=== PATIENT | male | born 1950 | race Caucasian/White ===

== ENCOUNTER → 2018-01-09 09:40 | Outpatient (CLI) | payer MEDICARE, SELFPAY ==
[2018-01-09 12:08] LABS: ALB/GLOB Ratio 1.3 RATIO (0.9-2.4); AST(SGOT) 17 U/L (15-37); Alanine Aminotransfer ALT/SGPT 21 U/L (16-61); Alkaline Phosphatase 78 U/L (45-117); Anion Gap 8 (5-15); BUN 25 mg/dL (7-18); BUN/Creat Ratio 12.2 RATIO (10-20); Calcium,Total 8.6 mg/dL (8.5-10.1); Chloride 108 mmol/L (98-107); Cholesterol 155 mg/dL (200); Creatinine, Serum 2.05 mg/dL (0.70-1.30); EST Glomerular Filtration Rate 34 mL/min (>60); Est Glom Filt Rate - Afr Amer 42 mL/min (>60); Glucose 140 mg/dL (74-106); High Density Lipoprotein 41 mg/dL; Potassium 4.4 mmol/L (3.5-5.1); Sodium Level 140 mmol/L (136-145); Triglycerides 130 mg/dL; Very Low Density Lipoprotein 26 mg/dL (5-40)
[2018-01-09 12:12] LABS: Hemoglobin A1c 8.3 % (4.2-6.3)
== END ==
PROVIDERS: Family Provider Family Medicine; PCP Family Medicine; Visit Provider Family Medicine
DX: E11.22 Type 2 diabetes mellitus with diabetic chronic kidney disease (principal); N18.3 Chronic kidney disease, stage 3 (moderate); E78.5 Hyperlipidemia, unspecified
CPT/HCPCS: 36415; 80053; 80061; 83036

== ENCOUNTER → 2018-02-17 08:00 | Outpatient (CLI) | payer MEDICARE, SELFPAY ==
--- NOTE | 2018-02-17 08:00 | DT_ITS ---
This patient was seen during an EMR downtime February 10, 2018 - February 17, 2018. This patient may have a combination of paper and electronic documentation or all paper documentation. All documentation is viewable within the e-chart portion of [facility] for each patient visit.
[2018-02-17 10:41] LABS: Albumin, Serum 3.8 g/dL (3.2-5.0); BUN 15 mg/dL (7-18); BUN/Creat Ratio 9.9 RATIO (10-20); Calcium,Total 8.3 mg/dL (8.5-10.1); Chloride 111 mmol/L (98-107); Creatinine, Serum 1.52 mg/dL (0.70-1.30); EST Glomerular Filtration Rate 49 mL/min (>60); Est Glom Filt Rate - Afr Amer 59 mL/min (>60); Glucose 104 mg/dL (74-106); Phosphorus 2.9 mg/dL (2.5-4.9); Potassium 4.2 mmol/L (3.5-5.1); Sodium Level 143 mmol/L (136-145)
== END ==
PROVIDERS: Family Provider Family Medicine; PCP Family Medicine; Visit Provider Internal Medicine Nephrology
DX: E11.9 Type 2 diabetes mellitus without complications (principal); N18.3 Chronic kidney disease, stage 3 (moderate)
CPT/HCPCS: 36415; 80069

== ENCOUNTER → 2018-02-20 09:37 | Outpatient (CLI) | payer MEDICARE, SELFPAY ==
[2018-02-20 13:00] LABS: Protein, Urine (Random) 23.7 mg/dL (<11.9); Protein:Creat Ratio 166 mg/g CRE (0-200)
== END ==
PROVIDERS: Family Provider Family Medicine; PCP Family Medicine; Visit Provider Internal Medicine Nephrology
DX: E11.9 Type 2 diabetes mellitus without complications (principal)
CPT/HCPCS: 82570; 84156

== ENCOUNTER → 2018-03-26 15:56 | Outpatient (CLI) | payer MEDICARE, SELFPAY ==
[2018-03-26 18:54] LABS: Hemoglobin A1c 5.9 % (4.2-6.3)
== END ==
PROVIDERS: Family Provider Family Medicine; PCP Family Medicine; Visit Provider Family Medicine
DX: E11.9 Type 2 diabetes mellitus without complications (principal)
CPT/HCPCS: 36415; 83036

== ENCOUNTER → 2018-06-25 09:49 | Outpatient (CLI) | payer MEDICARE, SELFPAY ==
[2018-06-25 10:55] LABS: Hemoglobin A1c 5.5 % (4.2-6.3)
== END ==
PROVIDERS: Family Provider Family Medicine; PCP Family Medicine; Referring Provider Family Medicine; Visit Provider Family Medicine
DX: E11.9 Type 2 diabetes mellitus without complications (principal)
CPT/HCPCS: 36415; 83036

== ENCOUNTER → 2018-08-29 10:37 | Outpatient (CLI) | payer MEDICARE, SELFPAY ==
[2018-06-25 08:52] VITALS: BMI 30.4
[2018-08-29 11:46] LABS: Albumin, Serum 3.9 g/dL (3.2-5.0); BUN 16 mg/dL (7-18); Calcium,Total 8.6 mg/dL (8.5-10.1); Chloride 107 mmol/L (98-107); EST Glomerular Filtration Rate 46 mL/min (>60); Est Glom Filt Rate - Afr Amer 55 mL/min (>60); Glucose 175 mg/dL (74-106); Phosphorus 2.7 mg/dL (2.5-4.9); Potassium 4.5 mmol/L (3.5-5.1); Sodium Level 138 mmol/L (136-145)
[2018-08-29 11:59] LABS: PTHIN 80.3 pg/mL (18.4-80.1)
== END ==
PROVIDERS: Family Provider Family Medicine; PCP Family Medicine; Referring Provider Internal Medicine Nephrology; Visit Provider Internal Medicine Nephrology
DX: N18.3 Chronic kidney disease, stage 3 (moderate) (principal)
CPT/HCPCS: 36415; 80069; 83970

== ENCOUNTER → 2018-12-31 09:49 | Outpatient (CLI) | payer MEDICARE, SELFPAY ==
[2018-12-31 09:25] VITALS: BMI 30.5
[2018-12-31 12:27] LABS: ALB/GLOB Ratio 1.4 RATIO (0.9-2.4); AST(SGOT) 23 U/L (15-37); Alanine Aminotransfer ALT/SGPT 21 U/L (16-61); Alkaline Phosphatase 81 U/L (45-117); Anion Gap 7 (5-15); BUN 25 mg/dL (7-18); BUN/Creat Ratio 12.6 RATIO (10-20); Chloride 109 mmol/L (98-107); Cholesterol 155 mg/dL (200); Creatinine, Serum 1.98 mg/dL (0.70-1.30); EST Glomerular Filtration Rate 36 mL/min (>60); Est Glom Filt Rate - Afr Amer 43 mL/min (>60); Globulin 2.8 g/dL (2.2-4.2); Glucose 146 mg/dL (74-106); High Density Lipoprotein 45 mg/dL; Potassium 4.5 mmol/L (3.5-5.1); Protein, Total 6.8 g/dL (6.4-8.2); Sodium Level 142 mmol/L (136-145); Triglycerides 108 mg/dL; Very Low Density Lipoprotein 22 mg/dL (5-40)
== END ==
PROVIDERS: Family Provider Family Medicine; PCP Family Medicine; Visit Provider Family Medicine
DX: N18.3 Chronic kidney disease, stage 3 (moderate) (principal); E78.5 Hyperlipidemia, unspecified
CPT/HCPCS: 36415; 80053; 80061

== ENCOUNTER → 2019-01-15 | Outpatient (CLI) | payer MEDICARE, SELFPAY ==
[2019-01-15 10:28] VITALS: BMI 30.5
--- NOTE | 2019-01-15 11:08 | VDLE_ITS ---
Reason For Study: swelling RIGHT LEFT CFV is compressible, spontaneous, phasic, CFV is partially compressible with decreased competent and demonstrates normal flow. augmentation. FV, Pop V, T/P Trunk, PTV, Peroneal V, Procedure Gastroc V, and Soleus V are dilated and Exam performed in department. noncompressible. The exam was diagnostic. GSV is dilated and noncompressibler at the A preliminary report was called and/or faxed knee. to Jose A Sarkar BOX FINISHER. Pt released per Jose A Sarkar. Office to call pt with instructions. Interpretation Summary Acute deep vein thrombosis is noted in the left common femoral vein. Acute deep vein thrombosis is noted in the left femoral vein. Acute deep vein thrombosis is noted in the left popliteal vein. Acute deep vein thrombosis is noted in the left tibio-peroneal trunk. Acute deep vein thrombosis is noted in the left posterior tibial vein. Acute deep vein thrombosis is noted in the left peroneal vein. Acute deep vein thrombosis is noted in the left gastrocnemius vein. Acute deep vein thrombosis is noted in the left soleus vein. Acute superficial thrombophlebitis is noted in the left great saphenous vein at the level of the knee. Ordering Physician: Jose A Sarkar Performed By: Frankie Diaz RVT
== END | disposition home or self-care (01) ==
LOC: CVS 11:07
PROVIDERS: Family Provider Family Medicine; PCP Family Medicine; Referring Provider Nurse Practitioner Family; Visit Provider Nurse Practitioner Family
DX: M79.662 Pain in left lower leg (principal); M79.89 Other specified soft tissue disorders
CPT/HCPCS: 93971

== ENCOUNTER → 2019-03-06 | Outpatient (CLI) | payer MEDICARE, SELFPAY ==
[2019-02-11 09:50] VITALS: BMI 30.5
[2019-03-06 10:41] LABS: Albumin, Serum 3.8 g/dL (3.2-5.0); BUN 22 mg/dL (7-18); BUN/Creat Ratio 11.8 RATIO (10-20); Calcium,Total 8.8 mg/dL (8.5-10.1); Chloride 111 mmol/L (98-107); Creatinine, Serum 1.86 mg/dL (0.70-1.30); EST Glomerular Filtration Rate 38 mL/min (>60); Est Glom Filt Rate - Afr Amer 47 mL/min (>60); Glucose 153 mg/dL (74-106); Phosphorus 2.8 mg/dL (2.5-4.9); Potassium 4.2 mmol/L (3.5-5.1); Sodium Level 138 mmol/L (136-145)
[2019-03-06 10:46] LABS: PTHIN 81.7 pg/mL (18.4-80.1)
== END | disposition home or self-care (01) ==
LOC: LAB.FUTURE 09:53
PROVIDERS: Family Provider Family Medicine; PCP Family Medicine; Referring Provider Internal Medicine Nephrology; Visit Provider Internal Medicine Nephrology
DX: N18.3 Chronic kidney disease, stage 3 (moderate) (principal)
CPT/HCPCS: 36415; 80069; 83970

== ENCOUNTER → 2019-08-03 08:27 | Outpatient (CLI) | payer MEDICARE, SELFPAY ==
[2019-07-08 09:34] VITALS: BMI 30.5
[2019-08-03 10:04] LABS: BUN 20 mg/dL (7-18); BUN/Creat Ratio 12.5 RATIO (10-20); Calcium,Total 8.8 mg/dL (8.5-10.1); Chloride 106 mmol/L (98-107); EST Glomerular Filtration Rate 46 mL/min (>60); Est Glom Filt Rate - Afr Amer 55 mL/min (>60); Glucose 160 mg/dL (74-106); Phosphorus 2.6 mg/dL (2.5-4.9); Potassium 3.9 mmol/L (3.5-5.1); Sodium Level 139 mmol/L (136-145)
== END ==
PROVIDERS: Family Provider Family Medicine; PCP Family Medicine; Referring Provider Internal Medicine Nephrology; Visit Provider Internal Medicine Nephrology
DX: N18.3 Chronic kidney disease, stage 3 (moderate) (principal)
CPT/HCPCS: 36415; 80069

== ENCOUNTER → 2020-01-05 | Outpatient (CLI) | payer MEDICARE, SELFPAY ==
[2019-07-08 09:34] VITALS: BMI 30.5
[2020-01-05 09:31] VITALS: BMI 30.5
[2020-01-05 14:22] LABS: ALB/GLOB Ratio 1.4 RATIO (0.9-2.4); AST(SGOT) 14 U/L (15-37); Alanine Aminotransfer ALT/SGPT 18 U/L (16-61); Alkaline Phosphatase 77 U/L (45-117); Anion Gap 5 (5-15); BUN 16 mg/dL (7-18); BUN/Creat Ratio 9.7 RATIO (10-20); Calcium,Total 8.9 mg/dL (8.5-10.1); Chloride 106 mmol/L (98-107); Creatinine, Serum 1.65 mg/dL (0.70-1.30); EST Glomerular Filtration Rate 44 mL/min (>60); Est Glom Filt Rate - Afr Amer 53 mL/min (>60); Globulin 2.9 g/dL (2.2-4.2); Glucose 118 mg/dL (74-106); Potassium 3.9 mmol/L (3.5-5.1); Protein, Total 6.9 g/dL (6.4-8.2); Sodium Level 138 mmol/L (136-145)
== END | disposition home or self-care (01) ==
PROVIDERS: PCP Family Medicine; Referring Provider Family Medicine; Visit Provider Family Medicine
DX: J44.9 Chronic obstructive pulmonary disease, unspecified (principal); E11.22 Type 2 diabetes mellitus with diabetic chronic kidney disease; N18.3 Chronic kidney disease, stage 3 (moderate)
CPT/HCPCS: 36415; 80053; 87635; G2023; U0004

== ENCOUNTER → 2020-03-09 08:30 | Outpatient (CLI) | payer MEDICARE, SELFPAY ==
[2020-01-05 09:31] VITALS: BMI 30.5
[2020-03-09 09:41] LABS: PTHIN 100.6 pg/mL (18.4-80.1)
[2020-03-09 09:43] LABS: Protein:Creat Ratio 131 mg/g CRE (0-200)
[2020-03-09 09:46] LABS: Albumin, Serum 3.6 g/dL (3.2-5.0); BUN 18 mg/dL (7-18); BUN/Creat Ratio 10.5 RATIO (10-20); Calcium,Total 8.3 mg/dL (8.5-10.1); Chloride 110 mmol/L (98-107); Creatinine, Serum 1.71 mg/dL (0.70-1.30); EST Glomerular Filtration Rate 42 mL/min (>60); Est Glom Filt Rate - Afr Amer 51 mL/min (>60); Glucose 138 mg/dL (74-106); Phosphorus 3.4 mg/dL (2.5-4.9); Potassium 3.9 mmol/L (3.5-5.1); Sodium Level 141 mmol/L (136-145)
== END ==
PROVIDERS: PCP Family Medicine; Referring Provider Internal Medicine Nephrology; Visit Provider Internal Medicine Nephrology
DX: E11.22 Type 2 diabetes mellitus with diabetic chronic kidney disease (principal); N18.3 Chronic kidney disease, stage 3 (moderate)
CPT/HCPCS: 36415; 80069; 82570; 83970; 84156

== ENCOUNTER → 2020-04-12 09:35 | Outpatient (CLI) | payer MEDICARE, SELFPAY ==
[2020-04-12 09:00] VITALS: BMI 27.7
[2020-04-13 06:45] LABS: SARS-COV-2 TOTAL ABS Nonreactive (Nonreactive)
== END ==
PROVIDERS: PCP Family Medicine; Referring Provider Family Medicine; Visit Provider Family Medicine
DX: Z03.818 Encounter for observation for suspected exposure to other biological agents ruled out (principal)
CPT/HCPCS: 36415; 86769

== ENCOUNTER → 2020-08-24 07:51 | Outpatient (CLI) | payer MEDICARE, SELFPAY ==
[2020-01-05 09:31] VITALS: BMI 30.5
[2020-07-13 09:10] VITALS: BMI 28.5
[2020-08-24 08:48] LABS: Hematocrit 41.7 % (40-54); Hemoglobin 14.7 g/dL (13.0-16.5); Mean Corp Hgb Conc 35.3 g/dL (32-36); Mean Corpuscular Hgb 32.2 pg (27.0-32.0); Mean Corpuscular Volume 91.4 fL (80-94); Mean Platelet Vol. 10.3 fl (6.2-12.0); Platelet Count 175 K/mm3 (150-450); RBC Distribution Width CV 11.3 % (11.6-14.6); RBC Distribution Width SD 38.1 fl (35.1-43.9); Red Blood Count 4.56 M/mm3 (4.6-6.2); White Blood Count 5.9 K/mm3 (4.4-11.0)
[2020-08-24 09:19] LABS: Albumin, Serum 4.2 g/dL (3.2-5.0); BUN 13 mg/dL (7-18); BUN/Creat Ratio 8.2 RATIO (10-20); Calcium,Total 8.9 mg/dL (8.5-10.1); Chloride 108 mmol/L (98-107); Creatinine, Serum 1.58 mg/dL (0.70-1.30); EST Glomerular Filtration Rate 46 mL/min (>60); Est Glom Filt Rate - Afr Amer 56 mL/min (>60); Glucose 124 mg/dL (74-106); Phosphorus 2.4 mg/dL (2.5-4.9); Potassium 3.3 mmol/L (3.5-5.1); Sodium Level 141 mmol/L (136-145)
== END ==
PROVIDERS: PCP Family Medicine; Referring Provider Internal Medicine Nephrology; Visit Provider Internal Medicine Nephrology
DX: N18.30 Chronic kidney disease, stage 3 unspecified (principal)
CPT/HCPCS: 36415; 80069; 85027

== ENCOUNTER → 2020-11-30 | Outpatient (CLI) | payer MEDICARE, SELFPAY ==
[2020-11-30 13:56] LABS: Bacteria 0 SEEN /hpf (None Seen); Mucous, Urine 0 SEEN /hpf (<or=2+); Red Blood Cells-Urine 0 SEEN /hpf (0-5); Squamous Epithelial Cells - UA 0 SEEN /hpf (0-5); White Blood Cells 0 SEEN /hpf (0-5)
[2020-11-30 15:17] LABS: Color, Urine Yellow (Yellow); Glucose, Dipstick Normal (Normal); Ketone-Dipstick Negative (Negative); Leukocyte Esterase-Dipstick Negative /ul (Negative); Nitrite-Dipstick Negative (Negative); Occult Blood-Urine 10 /ul (Negative); Protein-Dipstick 15 mg/dl (Negative); Specific Gravity, Urine 1.015 (1.002-1.030); Urine Bilirubin Dipstick Negative (Negative); Urine Clarity Clear (Clear); Urine Urobilinogen 1 mg/dl (Normal)
== END | disposition home or self-care (01) ==
LOC: LABSPEC 13:56
PROVIDERS: PCP Family Medicine; Referring Provider Nurse Practitioner Family; Visit Provider Nurse Practitioner Family
DX: R10.9 Unspecified abdominal pain (principal); K21.9 Gastro-esophageal reflux disease without esophagitis
CPT/HCPCS: 81001; 87086; 87088

== ENCOUNTER → 2020-12-12 15:34 | Outpatient (CLI) | payer MEDICARE, SELFPAY ==
--- NOTE | 2020-12-12 15:41 | CT_ITS ---
STUDY: CT ABDOMEN AND PELVIS WITHOUT CONTRAST REASON FOR EXAM: Male, 70 years old. abdominal pain RADIATION DOSAGE (If Supplied By Facility): CTDIvol = ( 13.08 ) mGy, DLP = ( 669.71 ) mGycm TECHNIQUE: Transaxial images were obtained from the dome of the diaphragm to the symphysis pubis without oral contrast, and without intravenous contrast. Sagittal and coronal images were reconstructed. Individualized dose optimization techniques were used for this CT. COMPARISON: None. FINDINGS: The visualized lung bases are unremarkable. The visualized portions of the heart are within normal limits. Normal liver. Normal gallbladder and extrahepatic biliary system. Normal spleen. Normal pancreas. Normal bilateral adrenal glands. Nonspecific bilateral perinephric stranding. Multiple right-sided low attenuation structures consistent with simple cysts, largest seen within the mid lower pole, exophytic and measuring 5.3 x 6.6 cm. Otherwise normal right kidney. Multiple low-attenuation structures within the left kidney consistent with simple cysts, largest seen in the left mid upper renal pole, exophytic and measuring 5.0 x 5.0 cm. Otherwise normal left kidney. Normal visualized stomach. Normal small intestine. Normal colon. The appendix is visualized and appears normal. Normal abdominal aorta. Normal inferior vena cava. Normal retroperitoneum. Normal urinary bladder. Mild prosthetic enlargement. Small right-sided fat-containing inguinal hernia. There are diffuse degenerative changes of the visualized lumbar spine. Degenerative disease of bilateral SI joints and hips. CT/Abdomen/Pelvis without Cont IMPRESSION: No acute appendicitis or bowel obstruction. No focal inflammatory process throughout the gastrointestinal tract. Bilateral renal cysts, remainder of abdominal viscera are unremarkable. Electronically Signed: Jodi Messina MD at 23:39 EDT , Service support ,
== END ==
PROVIDERS: PCP Family Medicine; Referring Provider Nurse Practitioner Family; Visit Provider Nurse Practitioner Family
DX: K21.9 Gastro-esophageal reflux disease without esophagitis (principal); R10.9 Unspecified abdominal pain
CPT/HCPCS: 74176

== ENCOUNTER 2020-12-27 08:10 | Day surgery (SDC) | payer MEDICARE, SELFPAY ==
[2020-12-14 09:01] VITALS: BMI 25.8
[2020-12-27] VITALS (7 sets, daily range): BP systolic 116–127; BP diastolic 56–66; PULSE 59–72; RESP 16–18; TEMP 36.3–36.7; O2SAT 99–100; BMI 26.2
--- NOTE | 2020-12-27 07:12 | HP_ITS ---
Intake Vital Signs 12/14/20 Height 5 ft 10 in 12/14/20 Weight: 180 lb 12/14/20 BMI 25.8 12/14/20 BP 165/79 H 12/14/20 Blood Pressure Location Rt brachial 12/14/20 Position Sitting 12/14/20 Respiration 16 12/14/20 Pulse 57 L 12/14/20 Pulse Source Monitor 12/14/20 Temp 97.8 F 12/14/20 Temp Source Temporal 12/14/20 Pulse Oximetry (%) 98 12/14/20 Oxygen Delivery Method room air Intake Visit Reasons: Reflux Chief Complaint: nausea and abdominal pain Md Do Resident Urgent Care Required: No Is patient in pain?: No Allergies aspirin Allergy (Severe, Verified 12/14/20 09:02) Hives Medications losartan 25 mg tablet 25 mg PO QDAY #90 tab 04/12/20 [Rx Confirmed 12/14/20] pravastatin 20 mg tablet 20 mg PO QDAY #90 tab 04/12/20 [Rx Confirmed 12/14/20] sitagliptin 100 mg tablet 100 mg PO QDAY #90 tab 07/13/20 [Rx Confirmed 12/14/20] apixaban 5 mg tablet 5 mg PO BID #180 tab 10/26/20 [Rx Confirmed 12/14/20] docusate sodium 100 mg capsule 100 mg PO DAILY PRN 12/14/20 [History Confirmed 12/14/20] [facility] Medical History History of DVT (deep vein thrombosis) (Acute) History of melanoma (Acute) Constipation (Acute) Lower abdominal pain (Acute) Abdominal pain (Acute) Chronic obstructive pulmonary disease (Chronic) Left leg swelling (Acute) Stage 3 chronic kidney disease (Chronic) Hyperlipemia (Chronic) Hypertension (Chronic) Type 2 diabetes mellitus (Chronic) Surgical History Hx of melanoma excision (Acute) History of appendectomy (Acute) Family History Grandmother Diabetes Social History (Updated 12/14/20 @ 09:[address] Mohsen Campos MD) Smoking Status: Current every day smoker alcohol intake: never substance use type: does not use caffeine: Yes what type of physical activity do you participate in: other details: yard work frequency: 3-4 times per week HPI HPI HPI: LEE HERNÁNDEZ, is a 70 M who presents to the office today for HPI HPI Surgical H&P: Yes HPI: LEE HERNÁNDEZ, is a 70 M who presents to the office today for weight loss and abdominal pain and constipation. The patient says that he has been having unintentional weight loss and he has been having lower abdominal pain especially when he gets constipated. He says he is going to the bathroom every 1 to 2 days but sometimes he goes every 3 days. The patient is not having any blood in his stool. He has never had a colonoscopy in the past. He says the abdominal pain is both lower quadrants and does not radiate. He says that eating creates the pain to become worse as well. ROS General General: No weight change, appetite, fatigue, colon cancer, breast cancer or weakness HEENT HEENT: No difficulty swallowing, eye injury, eye surgery, swollen glands or hoarseness Endo Endocrine: Yes diabetes mellitus; no thyroid disease, thyroid cancer, Hair loss, heat intolerance or cold intolerance Skin Skin: No rash or changing moles Musc Musculoskeletal: No back problems, arthritis, rheumatoid arthritis, gout or joint pain Cardio Cardiovascular: No murmur, pacemaker, heart disease, atrial fibrillation, high blood pressure, heart attack, heart stent, palpitations, shortness of breat with exertion or chest pain Psych Psychiatric: No depression, anxiety or hearing voices Resp Respiratory: No shortness of breath, No sleep apnea, No cough, No COPD, No asthma, No emphysema, No wheezing Gastro Gastrointestinal: Yes abdominal pain, No nausea or vomiting, No diarrhea, Yes constipation, No blood in stool, No acid reflux, No hemorrhoids, No ulcers, No gallbladder problem, No black,tarry stools Kwadwo Hematologic: Yes blood thinners, No blood disorders, No bleeding, No anemia, Yes blood clots Neuro Neurologic: No system reviewed and no additional complaints, except as docu, No as per HPI, No abnormal walking, No abnormal hearing, No abnormal movements, No abnormal speech, No behavioral changes, No burning sensations, No confusion, No seizure-like activity, No unsteadiness, No dizziness, No localized weakness, No frequent falls, No headache(s), No lack of coordination, No loss of vision, No memory loss, No numbness, No other visual disturbances, No radiating pain, No restless legs, No sensory deficit, No fainting, No tingling, No tremor(s), No weakness, No other Exam Const General: cooperative Orientation: alert, oriented x3 Resp Effort & Inspection: normal respiratory effort Auscultation: clear to auscultation bilaterally Cardio Rate: regular rate Rhythm: regular rhythm Heart Sounds: no murmurs GI Inspection: non-distended Palpation: soft, nontender Assessment & Plan Problems 1. Lower abdominal pain R10.30 2. Constipation, unspecified constipation type K59.00 Plan Patient is having lower abdominal pain especially after eating. He also reports a constipation makes the pain worse. He also reports unintentional weight loss. I have instructed him to take daily MiraLAX and I will perform an EGD and colonoscopy. The patient has never had a screening colonoscopy in the past. I have asked him to stop his Eliquis for 2 days prior to surgery. I explained endoscopy in detail to the patient. I explained the risks including but not limited to stroke or heart attack with anesthesia, perforation of the GI tract, bleeding, infection. I explained that any of these could necessitate further emergency surgery. The patient understands and all questions were answered sufficiently. The patient wishes to proceed with procedure. Mohsen Campos MD Pager: [facility] [address] [place] [address], [address] [place] [address] Office: Orders Orders: Colonoscopy Today K59.00, R10.30 EGD Today R10.9 Coding Level of Care Code Off vis,new,level 3 Diagnoses Lower abdominal pain R10.30 ??Abdominal location: lower abdomen, unspecified Constipation, unspecified constipation type K59.00 ??Constipation type: unspecified constipation type I have re-examined the patient. There are no clinical changes since date of exam.
[2020-12-27 09:16] LABS: Bedside Glucose 117 mg/dL (70-110)
[2020-12-27] MEDS: Lactated Ringers 1,000 ML 100 ML IV (09:17)
--- NOTE | 2020-12-27 09:30 | COLBX_PTH ---
PATIENT: LEE HERNÁNDEZ LOC: EN U#:[id number] AGE/SX: 70/M ROOM: RE12/27/[address]: Dr. Mohsen Campos MD : 1950 BED: DIS: 12/27/2020 SPEC #: [id number] RECD: 12/27/20 11:13 STATUS: KOLBY ZACHARIAH #: [id number] NICOLE: 12/27/20 09:[address]: Mohsen Campos DEPT: SURGICAL PATHOLOGY RECD BY: Vi Odell ENTERED: 12/27/20 12:36 SP TYPE: COLON BX OTHR DR: Dr. Ocsar Weaver, Tissues: A - Rectum, NOS B - Ascending colon C - Transverse colon Procedures: Surgery Specimen Level IV HEADER OPERATION: Colonoscopy, EGD ([facility]) PRE-OP DIAGNOSIS: Lower abdominal, constipation TISSUE SUBMITTED: A - Rectal polyp, B - Ascending colon polyp, C - Distal transverse colon polyp MICROSCOPIC DIAGNOSIS A. Rectal polyp, biopsy: Fragments of tubulovillous adenoma. B. Ascending colon polyp, biopsy: Fragments of fecal material. See comment. C. Distal transverse colon polyp, biopsy: Tubular adenoma. SJ:mikey 12/28/2020 COMMENT B. Colonic tissue is not identified in the specimen. MICROSCOPIC DESCRIPTION Slides are reviewed. GROSS DESCRIPTION A - Received in fixative is one container labeled with the patient's name and designated rectal polyp. The specimen consists of three polypoid pieces of perkins-pink soft tissue. The largest piece measures 2 x 1.5 x 1 cm. The smaller two pieces measure in aggregate 1 x 0.5 x 0.2 cm. The largest piece is serially sectioned. The entire specimen is submitted in two cassettes. Cassette 2 contains the largest piece. B - Received in fixative is one container labeled with the patient's name and designated ascending colon polyp. The specimen appears to predominantly consist of fecal material measuring in aggregate 0.5 x 0.5 x 0.1 cm. The entire specimen is submitted in one cassette. C - Received in fixative is one container labeled with the patient's name and designated distal transverse polyp. The specimen consists of one piece of perkins-pink polyp that measures 0.4 x 0.4 x 0.2 cm. Multiple fragments of fecal material are also noted. The entire specimen is submitted in one cassette. / LUKE:mikey 12/27/20 TC:1 CPT: 14854 x3
--- NOTE | 2020-12-27 10:17 | OP.EGD_ITS ---
Patient Name: [place] Guo Procedure Date: 12/27/2020 9:38 AM Date of : 1950 Age: 70 Procedure: Upper GI endoscopy Indications: Recent gastrointestinal bleeding, Weight loss Providers: Mohsen Campos MD Referring MD: Oscar Weaver Medicines: Monitored Anesthesia Care Patient Profile: This is a 70 year old male. Refer to note in patient chart for documentation of history and physical. Complications: No immediate complications. Procedure: Pre-Anesthesia Assessment: - Prior to the procedure, a History and Physical was performed, and patient medications and allergies were reviewed. The patient's tolerance of previous anesthesia was also reviewed. The risks and benefits of the procedure and the sedation options and risks were discussed with the patient. All questions were answered, and informed consent was obtained. Prior Anticoagulants: The patient has taken Eliquis (apixaban), last dose was 2 days prior to procedure. After reviewing the risks and benefits, the patient was deemed in satisfactory condition to undergo the procedure. After obtaining informed consent, the endoscope was passed under direct vision. Throughout the procedure, the patient's blood pressure, pulse, and oxygen saturations were monitored continuously. The gastroscope was introduced through the mouth, and advanced to the second part of duodenum. The upper GI endoscopy was accomplished without difficulty. The patient tolerated the procedure well. Scope In: 9:49:21 AM Scope Withdrawal Time 0 hours 0 minutes 2 seconds Scope Out: 9:51:38 AM Total Procedure Duration Time 0 hours 2 minutes 17 seconds Findings: The esophagus was normal. The stomach was normal. The examined duodenum was normal. Impression: - Normal esophagus. - Normal stomach. - Normal examined duodenum. - No specimens collected. Recommendation: - Discharge patient to home. - Resume previous diet. - Continue present medications. - Resume Eliquis (apixaban) at prior dose tomorrow. Procedure Code(s): --- Professional --- 08147, Esophagogastroduodenoscopy, flexible, transoral; diagnostic, including collection of specimen(s) by brushing or washing, when performed (separate procedure) Diagnosis Code(s): --- Professional --- K92.2, Gastrointestinal hemorrhage, unspecified R63.4, Abnormal weight loss CPT copyright 2017 [employer]. All rights reserved. The codes documented in this report are preliminary and upon demand equipment repairer review may be revised to meet current compliance requirements. Mohsen Campos MD 12/27/2020 10:16:33 AM This report has been signed electronically. Number of Addenda: 0 Note Initiated On: 12/27/2020 9:38 AM
--- NOTE | 2020-12-27 10:17 | OP.CCLET_ITS ---
12/27/2020 Oscar Weaver Re : Upper GI endoscopy procedure for [place] Guo Dear Dr. Weaver This procedure was performed on Sunday, December 27, 2020. My impressions and recommendations are as follows: Impressions : - Normal esophagus. - Normal stomach. - Normal examined duodenum. - No specimens collected. Recommendations : - Discharge patient to home. - Resume previous diet. - Continue present medications. - Resume Eliquis (apixaban) at prior dose tomorrow. My findings are described in the full procedure note, which is enclosed. If I can be of further assistance, please feel free to contact me at Doctor phone number(s): , Work: . Sincerely, Mohsen Campos MD 12/27/2020 10:16:33 AM This report has been signed electronically.
--- NOTE | 2020-12-27 10:19 | OP.COLON_ITS ---
Patient Name: [place] Guo Procedure Date: 12/27/2020 9:52 AM Date of : 1950 Age: 70 Procedure: Colonoscopy Indications: Rectal bleeding Providers: Mohsen Campos MD Referring MD: Oscar Weaver Medicines: Monitored Anesthesia Care Patient Profile: This is a 70 year old male. Refer to note in patient chart for documentation of history and physical. Last Colonoscopy: none. The patient's first colonoscopy is today. Complications: No immediate complications. Estimated blood loss: Minimal. Procedure: Pre-Anesthesia Assessment: - Prior to the procedure, a History and Physical was performed, and patient medications and allergies were reviewed. The patient's tolerance of previous anesthesia was also reviewed. The risks and benefits of the procedure and the sedation options and risks were discussed with the patient. All questions were answered, and informed consent was obtained. Prior Anticoagulants: The patient has taken Eliquis (apixaban), last dose was 2 days prior to procedure. After reviewing the risks and benefits, the patient was deemed in satisfactory condition to undergo the procedure. After I obtained informed consent, the scope was passed under direct vision. Throughout the procedure, the patient's blood pressure, pulse, and oxygen saturations were monitored continuously. The colonoscope was introduced through the anus and advanced to the cecum, identified by appendiceal orifice and ileocecal valve. The colonoscopy was performed without difficulty. The patient tolerated the procedure well. The quality of the bowel preparation was good. Scope In: 9:53:56 AM Scope Withdrawal Time 0 hours 5 minutes 38 seconds Scope Out: 10:11:26 AM Total Procedure Duration Time 0 hours 17 minutes 30 seconds Findings: Three polyps were found in the rectum, distal transverse colon and ascending colon. The polyps were large in size. These polyps were removed with a hot snare. Resection and retrieval were complete. To prevent bleeding after the polypectomy, one hemostatic clip was successfully placed at the site of the rectal polyp. There was no bleeding at the end of the procedure. Impression: - Three large polyps in the rectum, in the distal transverse colon and in the ascending colon, removed with a hot snare. Resected and retrieved. Clip was placed. Recommendation: - Discharge patient to home. - Resume previous diet. - Continue present medications. - Resume Eliquis (apixaban) at prior dose tomorrow. - Await pathology results. - Repeat colonoscopy in 3 years for surveillance of multiple polyps. Procedure Code(s): --- Professional --- 33877, Colonoscopy, flexible; with removal of tumor(s), polyp(s), or other lesion(s) by snare technique Diagnosis Code(s): --- Professional --- K62.1, Rectal polyp D12.3, Benign neoplasm of transverse colon (hepatic flexure or splenic flexure) D12.2, Benign neoplasm of ascending colon K62.5, Hemorrhage of anus and rectum CPT copyright 2017 [employer]. All rights reserved. The codes documented in this report are preliminary and upon graduate studies dean review may be revised to meet current compliance requirements. Mohsen Campos MD 12/27/2020 10:19:12 AM This report has been signed electronically. Number of Addenda: 0 Note Initiated On: 12/27/2020 9:52 AM
--- NOTE | 2020-12-27 10:19 | OP.CCLET_ITS ---
12/27/2020 Oscar Weaver Re : Colonoscopy procedure for [place] Guo Dear Dr. Weaver This procedure was performed on Sunday, December 27, 2020. My impressions and recommendations are as follows: Impressions : - Three large polyps in the rectum, in the distal transverse colon and in the ascending colon, removed with a hot snare. Resected and retrieved. Clip was placed. Recommendations : - Discharge patient to home. - Resume previous diet. - Continue present medications. - Resume Eliquis (apixaban) at prior dose tomorrow. - Await pathology results. - Repeat colonoscopy in 3 years for surveillance of multiple polyps. My findings are described in the full procedure note, which is enclosed. If I can be of further assistance, please feel free to contact me at Doctor phone number(s): , Work: . Sincerely, Mohsen Campos MD 12/27/2020 10:19:12 AM This report has been signed electronically.
== END 2020-12-27 11:06 | disposition home or self-care (01) ==
LOC: EN 08:10 → AC 08:11
PROVIDERS: PCP Family Medicine; Referring Provider Family Medicine; Visit Provider Surgery
PROC: 0DJD8ZZ Inspection of Lower Intestinal Tract, Via Natural or Artificial Opening Endoscopic (ICD-10-PCS; CPT 45378; principal; 2020-12-27 09:25)
DX: D12.3 Benign neoplasm of transverse colon (principal); K62.1 Rectal polyp; K63.5 Polyp of colon; Z20.822 Contact with and (suspected) exposure to COVID-19; J44.9 Chronic obstructive pulmonary disease, unspecified; E78.5 Hyperlipidemia, unspecified; I12.9 Hypertensive chronic kidney disease with stage 1 through stage 4 chronic kidney disease, or unspecified chronic kidney disease; E11.22 Type 2 diabetes mellitus with diabetic chronic kidney disease; N18.30 Chronic kidney disease, stage 3 unspecified; Z87.19 Personal history of other diseases of the digestive system; Z86.718 Personal history of other venous thrombosis and embolism; Z85.820 Personal history of malignant melanoma of skin; Z79.01 Long term (current) use of anticoagulants; Z79.899 Other long term (current) drug therapy; F17.200 Nicotine dependence, unspecified, uncomplicated
CPT/HCPCS: 43235; 45385; 82962; 87426; 88305; C9803; J7120; J2405

== ENCOUNTER → 2021-01-11 08:53 | Outpatient (CLI) | payer MEDICARE, SELFPAY ==
[2021-01-11 08:18] VITALS: BMI 26.2
[2021-01-11 12:58] LABS: ALB/GLOB Ratio 1.4 RATIO (0.9-2.4); AST(SGOT) 5 U/L (15-37); Alanine Aminotransfer ALT/SGPT 14 U/L (16-61); Albumin, Serum 3.9 g/dL (3.2-5.0); Alkaline Phosphatase 93 U/L (45-117); Anion Gap 3 (5-15); BUN 19 mg/dL (7-18); Calcium,Total 8.9 mg/dL (8.5-10.1); Chloride 112 mmol/L (98-107); Cholesterol 154 mg/dL (200); Creatinine, Serum 1.73 mg/dL (0.70-1.30); EST Glomerular Filtration Rate 42 mL/min (>60); Est Glom Filt Rate - Afr Amer 50 mL/min (>60); Globulin 2.8 g/dL (2.2-4.2); Glucose 139 mg/dL (74-106); High Density Lipoprotein 46 mg/dL; Potassium 4.4 mmol/L (3.5-5.1); Protein, Total 6.7 g/dL (6.4-8.2); Sodium Level 142 mmol/L (136-145); Triglycerides 87 mg/dL; Very Low Density Lipoprotein 17 mg/dL (5-40)
== END ==
PROVIDERS: PCP Family Medicine; Referring Provider Family Medicine; Visit Provider Family Medicine
DX: E11.9 Type 2 diabetes mellitus without complications (principal); E78.2 Mixed hyperlipidemia; I10 Essential (primary) hypertension
CPT/HCPCS: 36415; 80053; 80061

== ENCOUNTER → 2021-04-19 09:00 | Outpatient (CLI) | payer MEDICARE, SELFPAY ==
[2021-01-11 08:18] VITALS: BMI 26.2
[2021-04-19 08:33] VITALS: BMI 26.2
[2021-04-19 12:40] LABS: BUN 16 mg/dL (7-18); BUN/Creat Ratio 10.4 RATIO (10-20); Calcium,Total 8.7 mg/dL (8.5-10.1); Chloride 110 mmol/L (98-107); Creatinine, Serum 1.54 mg/dL (0.70-1.30); EST Glomerular Filtration Rate 48 mL/min (>60); Est Glom Filt Rate - Afr Amer 57 mL/min (>60); Glucose 118 mg/dL (74-106); Sodium Level 143 mmol/L (136-145)
== END ==
PROVIDERS: PCP Family Medicine; Referring Provider Internal Medicine Nephrology; Visit Provider Internal Medicine Nephrology
DX: E11.22 Type 2 diabetes mellitus with diabetic chronic kidney disease (principal); N18.32 Chronic kidney disease, stage 3b
CPT/HCPCS: 36415; 80069

== ENCOUNTER → 2021-04-20 | Outpatient (CLI) | payer MEDICARE, SELFPAY ==
[2021-04-19 08:33] VITALS: BMI 26.2
[2021-04-20 12:18] LABS: Protein, Urine (Random) 23.5 mg/dL (<11.9); Protein:Creat Ratio 146 mg/g CRE (0-200)
== END | disposition home or self-care (01) ==
LOC: LABSPEC 08:38
PROVIDERS: PCP Family Medicine; Referring Provider Internal Medicine Nephrology; Visit Provider Internal Medicine Nephrology
DX: E11.22 Type 2 diabetes mellitus with diabetic chronic kidney disease (principal); N18.32 Chronic kidney disease, stage 3b
CPT/HCPCS: 82570; 84156

== ENCOUNTER 2021-05-26 20:58 | Inpatient (IN) | payer MEDICARE, SELFPAY ==
[2021-05-26 20:59] VITALS: BP 140/68; PULSE 110; RESP 16; TEMP 37.7; O2SAT 93; BMI 25.8
[2021-05-26 21:58] VITALS: BP 170/63; PULSE 100; RESP 15; O2SAT 98
--- NOTE | 2021-05-26 22:17 | EKG12_ITS ---
Test Reason : OVERDOSE Blood Pressure : / mmHG Vent. Rate : 100 BPM Atrial Rate : 100 BPM P-R Int : 250 ms QRS Dur : 138 ms QT Int : 342 ms P-R-T Axes : 075 -67 042 degrees QTc Int : 441 ms Sinus rhythm with 1st degree A-V block with occasional Premature ventricular complexes Left axis deviation Right bundle branch block Abnormal ECG Confirmed by ZOFIA WHITE, RAFFI ([id number]), sports editor JANNY CORRAL ([id number]) on 05/29/2021 11:37:43 AM Referred By: RENATA Confirmed By:RAFFI ARMIJO MD
--- NOTE | 2021-05-26 22:20 | RAD_ITS ---
STUDY: X-RAY CHEST REASON FOR EXAM: Male, 70 years old. Accidentally took extra doses of diabetes medication. TECHNIQUE: AP COMPARISON: None. FINDINGS: No evidence of pneumonia, pulmonary edema, pneumothorax or pleural effusion. Cardiac silhouette, hilar and mediastinal contours with no acute findings. Heart size normal. Atherosclerosis of the thoracic aorta. Degenerative osseous changes with no acute osseous abnormality. RAD/Chest 1 View (Portable) IMPRESSION: No acute findings. Electronically Signed: Corey Norris MD at 23:26 EDT Tel , Service support ,
[2021-05-26 22:31] LABS: Absolute Lymphocyte Count 0.24 X10^3/uL (0.83-4.51); Absolute Neutrophil Count 5.3 X10^3/uL (2.0-7.7); Basophil# 0.01 X10^3/uL; Basophil% 0.2 % (0-1); Hematocrit 41.3 % (40-54); Hemoglobin 14.3 g/dL (13.0-16.5); Lymphocyte # 0.24 X10^3/ul (0.83-4.51); Lymphocyte % 4.1 % (19-41); Mean Corp Hgb Conc 34.6 g/dL (32-36); Mean Corpuscular Hgb 32.6 pg (27.0-32.0); Mean Corpuscular Volume 94.1 fL (80-94); Mean Platelet Vol. 10.7 fl (6.2-12.0); Monocyte# 0.18 X10^3/uL; Monocyte% 3.1 % (0-10); NRBC Flagged by Analyzer 0 % (0-5); Neutrophil # 5.34 X10^3/uL (2.7-7.7); Neutrophil % 92.1 % (47-70); POSITIVE DIFFERENTIAL YES; Platelet Count 104 K/mm3 (150-450); RBC Distribution Width CV 11.4 % (11.6-14.6); RBC Distribution Width SD 39.4 fl (35.1-43.9); Red Blood Count 4.39 M/mm3 (4.6-6.2); White Blood Count 5.8 K/mm3 (4.4-11.0)
[2021-05-26 22:35] LABS: Differential Indicated SCAN CRITERIA MET
[2021-05-26 22:45] LABS: ALB/GLOB Ratio 1.2 RATIO (0.9-2.4); AST(SGOT) 23 U/L (15-37); Alanine Aminotransfer ALT/SGPT 21 U/L (16-61); Albumin, Serum 3.9 g/dL (3.2-5.0); Alkaline Phosphatase 54 U/L (45-117); Anion Gap 9 (5-15); BUN 24 mg/dL (7-18); Calcium,Total 8.8 mg/dL (8.5-10.1); Chloride 104 mmol/L (98-107); Creatinine, Serum 2.19 mg/dL (0.70-1.30); EST Glomerular Filtration Rate 32 mL/min (>60); Est Glom Filt Rate - Afr Amer 38 mL/min (>60); Estimated Creatinine Clearance 31.94 ml/min; Globulin 3.2 g/dL (2.2-4.2); Glucose 194 mg/dL (74-106); Potassium 3.9 mmol/L (3.5-5.1); Protein, Total 7.1 g/dL (6.4-8.2); Sodium Level 137 mmol/L (136-145)
[2021-05-26 23:00] VITALS: BP 148/61; PULSE 101; RESP 15; O2SAT 98
--- NOTE | 2021-05-26 23:01 | EDS_ITS ---
HPI History of Present Illness Chief Complaint: Overdose Informant: patient Onset/Context/Timing Onset: Today Context: Gradual Onset Timing: Continuous Quality: Weakness Location: Generalized Worsened by: Nothing Relieved by: Nothing Narrative Narrative: Patient presents with accidental overdose that occurred today. Patient states he took his daily medications at approximately 4 AM. Patient states he forgot about this and then took his daily medications again at tona roximately 8 AM. Patient states he feels weak all over. Patient states nothing makes it better nothing makes it worse. Patient denies any chest pain. Patient denies any shortness of breath. Patient missed to slight cough with some rhinorrhea. Patient denies any other symptoms. [facility] Medical History Abdominal pain Chronic obstructive pulmonary disease Constipation History of DVT (deep vein thrombosis) History of melanoma Hyperlipemia Hypertension Left leg swelling Lower abdominal pain Stage 3 chronic kidney disease Type 2 diabetes mellitus Home Medications losartan 25 mg tablet 25 mg PO QDAY #90 tab 01/11/21 [Rx Last Taken Unknown] pravastatin 20 mg tablet 20 mg PO QDAY #90 tab 01/11/21 [Rx Last Taken Unknown] sitagliptin 100 mg tablet 100 mg PO QDAY #90 tab 01/11/21 [Rx Last Taken Unknown] apixaban [Eliquis] 5 mg PO DAILY 05/26/21 [History Last Taken Unknown] Allergy/AdvReac Type Severity Reaction Status Date / Time aspirin Allergy Severe Hives Verified 05/26/21 21:00 Family History Grandmother Diabetes Surgical History History of appendectomy Hx of melanoma excision Social History Smoking Status: Current every day smoker Smokeless tobacco user: other alcohol intake: never substance use type: does not use caffeine: Yes what type of physical activity do you participate in: other details: yard work frequency: 3-4 times per week ROS ROS ED Constitutional Constitutional ED: Reports chills and subjective; Denies fever(s) Eyes Eyes: Denies blurry vision or change in vision ENT ENT ED: Reports rhinorrhea; Denies sore throat Cardiovascular Cardiovascular: Denies chest pain or palpitations Respiratory/Chest Respiratory/Chest: Reports cough; Denies dyspnea Gastrointestinal Gastrointestinal: Denies nausea or vomiting Genitourinary Genitourinary ED: Denies dysuria or hematuria Musculoskeletal Musculoskeletal: Denies back pain or neck pain Integumentary Denies abscess or rash Neurologic Neurologic: Reports weakness; Denies headache(s) Allergic/Immunologic Allergic/Immunologic ED: Denies mouth swelling or urticaria EXAM Physical Exam Const Vital Signs: 05/26/21 20:59 05/26/21 21:23 05/26/21 21:58 Temperature 99.8 F H Temperature Source Temporal Pulse Rate 110 H 100 Respiratory Rate 16 15 Respiratory Effort Normal Non-Labored Respiratory Pattern Normal Blood Pressure 140/68 H 170/63 H Blood Pressure Mean 92 98 Pulse Ox 93 98 Oxygen Delivery Method Room Air Room Air 05/26/21 23:00 05/27/21 00:00 05/27/21 01:00 Temperature Temperature Source Pulse Rate 101 H 118 H 112 H Respiratory Rate 15 15 15 Respiratory Effort Respiratory Pattern Blood Pressure 148/61 H 137/64 H 127/68 H Blood Pressure Mean 90 88 87 Pulse Ox 98 99 98 Oxygen Delivery Method Room Air Room Air Room Air 05/27/21 03:45 Temperature Temperature Source Pulse Rate 98 Respiratory Rate 18 Respiratory Effort Respiratory Pattern Blood Pressure 143/66 H Blood Pressure Mean 91 Pulse Ox 94 Oxygen Delivery Method Room Air Positive well nourished and well developed General Appearance ED: well developed HEENT Reports moist mucous membranes Neck supple and no JVD Resp normal respiratory effort and clear to auscultation bilaterally Cardio regular rate, regular rhythm and no murmurs GI normal to inspection, nondistended, normoactive bowel sounds and non-tender Palpation: soft Extremity normal to inspection General Extremety ED: Negative for edema or tenderness General Extremity: Negative for edema Neuro oriented x3, CN's II-XII intact bilaterally and no sensory deficits noted Sensorium / Orientation: alert Motor Exam: strength 5/5 throughout Psych mental status grossly normal Skin no rashes or lesions noted MDM MDM MDM Narrative Medical decision making narrative: CBC and comprehensive metabolic profile were obtained. Creatinine was slightly increased to 2.19. BUN was 24. This is consistent with prior results. Glucose was 194. Urinalysis does not show any evidence of urinary tract infection. EKG was obtained. On my interpretation, showed normal sinus rhythm with a rate of 100 with a first-degree AV block and occasional PVCs. There is left axis deviation and a right bundle branch block. The first-degree AV block and right bundle branch block were new compared to previous EKG dated 03/02/1998. Portable 1 view chest x-ray was obtained. On my interpretation, lung blair are clear. There is normal cardiac silhouette. Bony thorax is normal. There is no acute process noted. Radiologist also i nterpreted the x-ray and agrees. Patient feels better on reevaluation. Patient was advised of his findings. Patient was supposed to be discharged however when he tried to stand, he was very unsteady on his feet and was unable to ambulate. Because of this, CT scan of the brain was obtained. There is no acute intracranial abnormality. Patient was given some IV fluids. On reevaluation, patient was still unable to stand and ambulate. Case was discussed with the hospitalist. Lab Data Attestation: I reviewed the patient's lab results. Labs: Laboratory Results - last 24 hr 05/26/21 05/26/21 05/26/21 21:20 21:20 22:55 WBC 5.8 RBC 4.39 L Hgb 14.3 Hct 41.3 MCV 94.1 H MCH 32.6 H MCHC 34.6 RDW Std Deviation 39.4 RDW Coeff of Robert 11.4 L Plt Count 104 L MPV 10.7 Immature Gran % (Auto) 0.500 Neut % (Auto) 92.1 H Lymph % (Auto) 4.1 L [place] % (Auto) 3.1 Eos % (Auto) 0.0 Baso % (Auto) 0.2 Absolute Neuts (auto) 5.3 Absolute Lymphs (auto) 0.24 L Nucleated RBC % 0 Differential Comment SEE COMMENT Platelet Estimate MOD DEC RBC Morphology N CHROM Anisocytosis RARE Macrocytosis RARE Sodium 137 Potassium 3.9 Chloride 104 Carbon Dioxide 24.0 Anion Gap 9 BUN 24 H Creatinine 2.19 H Estim Creat Clear Calc 31.94 Est GFR (MDRD) Af Amer 38 L Est GFR (MDRD) Non-Af 32 L BUN/Creatinine Ratio 11.0 Glucose 194 H Calcium 8.8 Total Bilirubin 0.50 AST 23 ALT 21 Alkaline Phosphatase 54 Total Protein 7.1 Albumin 3.9 Globulin 3.2 Albumin/Globulin Ratio 1.2 Urine Color Yellow Urine Clarity Clear Urine pH 5.0 Ur Specific [place] 1.020 Urine Protein 100 H Urine Glucose (UA) Normal Urine Ketones 15 H Urine Occult Blood 50 H Urine Nitrite Negative Urine Bilirubin Negative Urine Urobilinogen 1 H Ur Leukocyte Esterase Negative Urine RBC 0 SEEN Urine WBC 0 SEEN Ur Squamous Epith Cells 0 SEEN Urine Bacteria RARE Urine Mucus 0 SEEN Radiography Chest X-Ray - ED: 1 View, Read by ED Physician, Read by Radiologist and Normal Diagnostic Testing: Radiology Impression Chest X-Ray 05/26/21 22:20 IMPRESSION: No acute findings. Electronically Signed: Corey Norris MD at 23:26 EDT Tel , Service support , Brain CT 05/27/21 00:25 IMPRESSION: No acute intracranial findings. Electronically Signed: Corey Norris MD at 2:33 EDT Tel , Service support , EKG Initial EKG: Attestation: I personally reviewed and interpreted this EKG as follows: Interpretation: Sinus Rhythm (100 with first-degree AV block and occasional PVCs), No Acute Injury Pattern and RBBB Comments: Left axis deviation Prior EKG tracings: available for review Prior: Changed (With a first-degree AV block and right bundle branch block are new compared to previous EKG dated 03/02/1998) Discharge Plan Dx/Rx/DC Orders Clinical Impression: Accidental overdose, Unable to ambulate Disposition Disposition: Acute Care Hospital [facility]
[2021-05-26 23:03] LABS: Mucous, Urine 0 SEEN /hpf (<or=2+); Red Blood Cells-Urine 0 SEEN /hpf (0-5); Squamous Epithelial Cells - UA 0 SEEN /hpf (0-5); White Blood Cells 0 SEEN /hpf (0-5)
[2021-05-26 23:04] LABS: Color, Urine Yellow (Yellow); Glucose, Dipstick Normal (Normal); Ketone-Dipstick 15 mg/dl (Negative); Leukocyte Esterase-Dipstick Negative /ul (Negative); Nitrite-Dipstick Negative (Negative); Occult Blood-Urine 50 /ul (Negative); Protein-Dipstick 100 mg/dl (Negative); Urine Bilirubin Dipstick Negative (Negative); Urine Clarity Clear (Clear); Urine Urobilinogen 1 mg/dl (Normal)
[2021-05-26 23:05] LABS: Anisocytosis RARE; Macrocytosis RARE; Platelet Estimate MOD DEC (ADEQ); Red Cell Morphology N CHROM NORMAL (NORM C&C)
[2021-05-26 23:09] LABS: Bacteria RARE /hpf (None Seen)
[2021-05-27] VITALS (11 sets, daily range): BP systolic 96–143; BP diastolic 53–95; PULSE 68–118; RESP 15–18; TEMP 36.6–39.1; O2SAT 92–99; BMI 25.5
--- NOTE | 2021-05-27 00:25 | CT_ITS ---
STUDY: CT BRAIN WITHOUT CONTRAST REASON FOR EXAM: Male, 70 years old. Confusion. Accidental overdose on medications. TECHNIQUE: Transaxial CT imaging of the brain was performed without administration of intravenous contrast material. Individualized dose optimization techniques were used for this CT. COMPARISON: No relevant priors. FINDINGS: No evidence of intracranial hemorrhage, mass, acute infarct, or hydrocephalus. Chronic microangiopathic changes in the white matter. Atherosclerosis of the intracranial arteries. No acute osseous abnormality. Visualized paranasal sinuses and mastoid air cells patent. Visualized extracranial soft tissues unremarkable. ASPECTS 06/18 CT/Brain/Head without Contrast IMPRESSION: No acute intracranial findings. Electronically Signed: Corey Norris MD at 2:33 EDT Tel , Service support ,
[2021-05-27] MEDS: 0.9% Normal Saline 1,000 ML 1000 ML IV (00:33)
--- NOTE | 2021-05-27 00:35 | ED.RN ---
Pt requesting to stand up to urinate. x2 assist. Pt unable to stand on his own and just falling back onto the bed. stating he normally is able to walk around on his own. Dr. De La Torre updated.
--- NOTE | 2021-05-27 05:24 | HP.PCM.HOS_ITS ---
[facility] - General General Date of Admission: 05/27/21 Date of Service: 05/27/21 Chief Complaint: Inability to walk HPI Narrative LEE HERNÁNDEZ, is a 70 M with a significant history of type 2 diabetes; CKD stage III; and DVT who initially presents emergency department because he forgot and took his medicine a second time on the same day of presentation. Patient was evaluated at the emergency department and was ready to be discharged home. However patient was asked to stand and ambulate. Patient could not stand so a decision was made to admit/observe patient at the hospital. Patient's who was at bedside reported that prior to patient coming to the emergency department patient could walk. Other work-up was negative except creatinine was elevated above baseline. After patient's has been seen by hospitalist patient developed a fever of 102.4F PFSH Medical History Abdominal pain Chronic obstructive pulmonary disease Constipation History of DVT (deep vein thrombosis) History of melanoma Hyperlipemia Hypertension Left leg swelling Lower abdominal pain Stage 3 chronic kidney disease Type 2 diabetes mellitus Home Medications losartan 25 mg tablet 25 mg PO QDAY #90 tab 01/11/21 [Rx Last Taken Unknown] pravastatin 20 mg tablet 20 mg PO QDAY #90 tab 01/11/21 [Rx Last Taken Unknown] sitagliptin 100 mg tablet 100 mg PO QDAY #90 tab 01/11/21 [Rx Last Taken Unknown] apixaban [Eliquis] 5 mg PO DAILY 05/26/21 [History Last Taken Unknown] Allergy/AdvReac Type Severity Reaction Status Date / Time aspirin Allergy Severe Hives Verified 05/26/21 21:00 Family History Grandmother Diabetes Surgical History History of appendectomy Hx of melanoma excision Social History Smoking Status: Current every day smoker Smokeless tobacco user: other alcohol intake: never substance use type: does not use caffeine: Yes what type of physical activity do you participate in: other details: yard work frequency: 3-4 times per week ROS ROS Narrative Constitutional: Reports rigors. Denies anorexia and change in weight Eyes: Denies blurry vision, change in eye color, change in vision, discharge from eye(s), double vision, erythema, eye pain, loss of vision or other HEENT: Denies abnormal hearing, dysphagia, ear pain, epistaxis, headache(s), hearing loss, nasal congestion, nasal discharge, post nasal drip, sinus pressure, sore throat or other Cardiovascular: Denies chest pain or palpitations. Denies dyspnea on exertion, orthopnea and paroxysmal nocturnal dyspnea Respiratory/Chest: Denies cough, excessive phlegm production, shortness of breath with exertion and wheezing Gastrointestinal: Denies abdominal pain, coffee ground emesis, constipation, diarrhea, dyspepsia, hematemesis, hematochezia, loose stools, melena, nausea, vomiting or other Genitourinary: Denies burning urination, difficulty urinating, dysuria, hematuria, nocturia, urinary frequency, urinary hesitancy, urinary incontinence, urinary urgency or other Musculoskeletal: Denies arthralgias, back pain, joint pain, joint stiffness, joint swelling, myalgias, neck pain or other Neurologic: Denies abnormal speech, confusion, disequilibrium, dizziness, headache(s), numbness, paresthesias, seizure-like activity, seizures, syncope, tingling, tremor(s) or other Psychiatric: Denies anxiety, depression, homicidal ideation, suicidal ideation or other Endocrinology: Denies change in body appearance, cold intolerance, excessive sweating, heat intolerance, polydipsia, polyuria or other Hematologic/Lymphatic: Denies anemia, easy bleeding, easy bruising, lymphadenopathy or other Integumentary: Denies rashes Allergic/Immunologic: Denies rhinitis, hives, eczema, asthma or other Vital Signs Vital Signs Vital Signs: 05/26/21 20:59 05/26/21 21:23 05/26/21 21:58 Temperature 99.8 F H Temperature Source Temporal Pulse Rate 110 H 100 Respiratory Rate 16 15 Respiratory Effort Normal Non-Labored Respiratory Pattern Normal Blood Pressure 140/68 H 170/63 H Blood Pressure Mean 92 98 Pulse Ox 93 98 Oxygen Delivery Method Room Air Room Air 05/26/21 23:00 05/27/21 00:00 05/27/21 01:00 Temperature Temperature Source Pulse Rate 101 H 118 H 112 H Respiratory Rate 15 15 15 Respiratory Effort Respiratory Pattern Blood Pressure 148/61 H 137/64 H 127/68 H Blood Pressure Mean 90 88 87 Pulse Ox 98 99 98 Oxygen Delivery Method Room Air Room Air Room Air Weight Weight: 81.647 kg Body Mass Index (BMI) 25.8 Physical Exam Narrative Physical exam: General: Well-nourished, well-developed. Head: Normocephalic, atraumatic, no tenderness Eyes: PERRLA, EOMI ENT, no trauma, moist mucous membranes, no rhinorrhea Neck: Nontender, full range of motion, no spinal tenderness, deformities, step- off CVS: Regular rate and rhythm. S1-S2 present. No murmur, gallop or rub. Respiratory : clear to auscultation bilaterally, chest wall nontender, no wheezing Abdomen: Soft, nontender, nondistended, normal bowel sounds, no masses : Deferred Back: Nontender, no CVA tenderness, no midline spinal tenderness, deformities, step-offs Extremities: Nontender full range of motion, no trauma Skin: Normal color, no trauma, abrasions Neuro: Alert, oriented, cranial nerves II through XII grossly intact. Strength in upper extremity 5 out of 5. Strength of bilateral lower extremities fluctuates. Psychiatry: Normal mood. Normal affect. Not depressed. Not anxious. Results Lab / Micro Data Result Diagrams: 05/26/21 21:20 05/26/21 21:20 Labs: Laboratory Results - last 24 hr 05/26/21 21:20: WBC 5.8, RBC 4.39 L, Hgb 14.3, Hct 41.3, MCV 94.1 H, MCH 32.6 H, MCHC 34.6, RDW Std Deviation 39.4, RDW Coeff of Robert 11.4 L, Plt Count 104 L, MPV 10.7, Immature Gran % (Auto) 0.500, Neut % (Auto) 92.1 H, Lymph % (Auto) 4.1 L, [place] % (Auto) 3.1, Eos % (Auto) 0.0, Baso % (Auto) 0.2, Absolute Neuts (auto) 5.3, Absolute Lymphs (auto) 0.24 L, Nucleated RBC % 0, Differential Comment SEE COMMENT, Platelet Estimate MOD DEC, RBC Morphology N CHROM, Anisocytosis RARE, Macrocytosis RARE 05/26/21 21:20: Sodium 137, Potassium 3.9, Chloride 104, Carbon Dioxide 24.0, Anion Gap 9, BUN 24 H, Creatinine 2.19 H, Estim Creat Clear Calc 31.94, Est GFR (MDRD) Af Amer 38 L, Est GFR (MDRD) Non-Af 32 L, BUN/Creatinine Ratio 11.0, Glucose 194 H, Calcium 8.8, Total Bilirubin 0.50, AST 23, ALT 21, Alkaline Phosphatase 54, Total Protein 7.1, Albumin 3.9, Globulin 3.2, Albumin/Globulin Ratio 1.2 05/26/21 22:55: Urine Color Yellow, Urine Clarity Clear, Urine pH 5.0, Ur Specific [place] 1.020, Urine Protein 100 H, Urine Glucose (UA) Normal, Urine Ketones 15 H, Urine Occult Blood 50 H, Urine Nitrite Negative, Urine Bilirubin Negative, Urine Urobilinogen 1 H, Ur Leukocyte Esterase Negative, Urine RBC 0 SEEN, Urine WBC 0 SEEN, Ur Squamous Epith Cells 0 SEEN, Urine Bacteria RARE, Urine Mucus 0 SEEN Radiology Impression Chest X-Ray 05/26/21 22:20 IMPRESSION: No acute findings. Electronically Signed: Corey Norris MD at 23:26 EDT Tel , Service support , Brain CT 05/27/21 00:25 IMPRESSION: No acute intracranial findings. Electronically Signed: Corey Norris MD at 2:33 EDT Tel , Service support , Assessment & Plan Assessment/Plan (1) Unable to ambulate: (2) LIVE (acute kidney injury): (3) Fever: QUALIFIERS: Fever type: unspecified Qualified Code(s): R50.9 - Fever, unspecified (4) CKD (chronic kidney disease) stage 3, GFR 30-59 ml/min: QUALIFIERS: Chronic kidney disease stage 3 subtype: stage 3b (GFR 30-44) Qualified Code(s): N18.32 - Chronic kidney disease, stage 3b PLAN: Unable to ambulate Actual brain CT was independently interpreted and agree with radiologist impression above. Patient had fluctuating strength in bilateral legs with left leg probable worse than the right leg. Unclear whether patient has actual decrease in strength; lack of motivation or somatic. MRI ordered. In the meantime will put patient on permissive hypertension. Patient is on losartan at home. We will hold losartan. In any case will hold losartan since patient is in LIVE. PT and OT to work with patient. Case management consult for disposition. Fever Review of CBC showed normal white count but with neutrophilia and lymphopenia. reported at home patient had rigors. Fever developed later at the emergency department with a temperature of 102.4 Fahrenheit. Tylenol as needed ordered. We will check rapid Covid antigen. Chest x-ray with no acute findings. Will check blood culture. LIVE on chronic kidney disease stage IIIb CKD Likely from Diabetic nephropathy and hypertensive nephrosclerosis Baseline creatinine of about 1.65 Creatinine on admission was 2.19. Received normal saline bolus at emergency department. Gentle IV hydration ordered. Trend BMP. Diabetes mellitus Patient with hyperglycemia on presentation Sitagliptin continued. Accu-Chek QA [facility] with correction scale insulin ordered. History of DVT: Eliquis continued. DVT prophylaxis: Not indicated since patient is on Eliquis. Eliquis continued Charges/Coding Visit Charges OBSV E&M: 86482 Initial observation care L3
[2021-05-27] MEDS: Acetaminophen 500 MG Tablet 1000 MG PO (06:02)
--- NOTE | 2021-05-27 09:18 | NURSING ---
RM 111
--- NOTE | 2021-05-27 12:41 | CASEMGMT ---
SOCIAL WORK Referral Source: Angélica COATES Reason for Consult: Discharge planning-possible SNF Patient with COVID-19 positive test result. Attempted to contact to discuss discharge planning. No answer, left message with this worker's call back information. Plan: RAYA Caldwell, BIN OPERATOR, OUTSIDE [employer] SALES REPRESENTATIVES
[2021-05-27 12:46] LABS: Bedside Glucose 119 mg/dL (70-110)
[2021-05-27] MEDS: 0.9% Normal Saline 1,000 ML 75 ML IV ×2 (14:11→22:46)
[2021-05-27 15:42] LABS: Phosphorus 2.2 mg/dL (2.5-4.9)
--- NOTE | 2021-05-27 16:01 | PCM.PN.BLA ---
Progress Note Patient was seen and examined. He admits to feeling very tired. Vitals are stable. Noted to have fever this morning. Covid test was positive. MRI brain was canceled Vitals reviewed, labs reviewed We will replace phosphorus, continue gentle IV fluid Recheck labs in a.m.
[2021-05-27] MEDS: Na Biphos/Potassium Phosphate PACKET 1 PACKET PO ×2 (17:11→22:46)
[2021-05-27 17:20] LABS: Bedside Glucose 127 mg/dL (70-110)
--- NOTE | 2021-05-27 18:02 | CASEMGMT ---
SOCIAL WORK Returned call to patient's , Estephanie. Introduced role and reason for referral. reports prior to admission patient was independent with ADLS and driving. states she and patient live in a 1 story home. unsure of discharge plan at this time. requesting call from patient's nurse. inquiring if she should get tested for COVID-19. to follow up with her PCP on Saturday. Support provided. Nasim Caldwell, AUTOMOTIVE LIGHT MECHANIC, DOVETAILER
--- NOTE | 2021-05-27 19:24 | NURSING ---
pandemic documentation initiated
[2021-05-27] MEDS: APIXABAN 5 MG TABLET PO (22:45)
[2021-05-27] MEDS: Pravastatin 20 MG Tablet PO (22:45)
[2021-05-27] MEDS: Acetaminophen 325 MG Tablet 650 MG PO (22:46)
[2021-05-27 23:01] LABS: Bedside Glucose 137 mg/dL (70-110)
[2021-05-28 04:45] VITALS: BP 134/63; PULSE 82; RESP 18; TEMP 38; O2SAT 96
[2021-05-28] MEDS: Acetaminophen 325 MG Tablet 650 MG PO ×2 (04:50→21:20)
[2021-05-28 05:06] LABS: Bedside Glucose 87 mg/dL (70-110)
[2021-05-28 06:28] VITALS: TEMP 38
[2021-05-28 06:51] LABS: Bedside Glucose 98 mg/dL (70-110)
[2021-05-28 07:16] LABS: Absolute Lymphocyte Count 0.54 X10^3/uL (0.83-4.51); Basophil# 0.01 X10^3/uL; Basophil% 0.2 % (0-1); Hematocrit 36.4 % (40-54); Hemoglobin 12.4 g/dL (13.0-16.5); Lymphocyte # 0.54 X10^3/ul (0.83-4.51); Lymphocyte % 11.5 % (19-41); Mean Corp Hgb Conc 34.1 g/dL (32-36); Mean Corpuscular Hgb 32.5 pg (27.0-32.0); Mean Corpuscular Volume 95.5 fL (80-94); Mean Platelet Vol. 10.4 fl (6.2-12.0); Monocyte% 2.1 % (0-10); NRBC Flagged by Analyzer 0 % (0-5); Neutrophil # 4.04 X10^3/uL (2.7-7.7); Neutrophil % 85.8 % (47-70); POSITIVE COUNT YES; POSITIVE DIFFERENTIAL YES; Platelet Count 81 K/mm3 (150-450); RBC Distribution Width CV 11.4 % (11.6-14.6); RBC Distribution Width SD 39.9 fl (35.1-43.9); Red Blood Count 3.81 M/mm3 (4.6-6.2); White Blood Count 4.7 K/mm3 (4.4-11.0)
[2021-05-28 07:17] LABS: Differential Indicated SCAN CRITERIA MET
[2021-05-28 07:40] LABS: Platelet Estimate MOD DEC (ADEQ)
[2021-05-28 07:53] LABS: ALB/GLOB Ratio 0.9 RATIO (0.9-2.4); AST(SGOT) 43 U/L (15-37); Alanine Aminotransfer ALT/SGPT 22 U/L (16-61); Albumin, Serum 2.7 g/dL (3.2-5.0); Alkaline Phosphatase 36 U/L (45-117); Anion Gap 5 (5-15); BUN 19 mg/dL (7-18); BUN/Creat Ratio 11.2 RATIO (10-20); Calcium,Total 7.6 mg/dL (8.5-10.1); Chloride 110 mmol/L (98-107); Creatinine, Serum 1.69 mg/dL (0.70-1.30); EST Glomerular Filtration Rate 43 mL/min (>60); Est Glom Filt Rate - Afr Amer 52 mL/min (>60); Glucose 103 mg/dL (74-106); Potassium 3.5 mmol/L (3.5-5.1); Protein, Total 5.7 g/dL (6.4-8.2); Sodium Level 138 mmol/L (136-145)
[2021-05-28 10:05] VITALS: BP 125/44; PULSE 73; RESP 18; TEMP 37.7; O2SAT 95
[2021-05-28] MEDS: APIXABAN 5 MG TABLET PO ×2 (10:08→21:20)
[2021-05-28] MEDS: Na Biphos/Potassium Phosphate PACKET 1 PACKET PO ×4 (10:08→21:20)
[2021-05-28] MEDS: LINAGLIPTIN 5 MG TABLET PO (10:08)
[2021-05-28] MEDS: 0.9% Normal Saline 1,000 ML 75 ML IV (10:20)
[2021-05-28 12:11] LABS: Bedside Glucose 104 mg/dL (70-110)
--- NOTE | 2021-05-28 14:20 | PCM.PN.HOSP ---
Subjective Subjective Patient was seen and examined. He appears slightly improved. Denied any new complaint. Denied any worsening shortness of breath. Objective Data Objective Data Vital Signs: Vital Signs Temp Pulse Resp BP Pulse Ox 99.8 F H 73 18 125/44 H 95 05/28/21 10:05 05/28/21 10:05 05/28/21 10:05 05/28/21 10:05 05/28/21 10:05 Oxygen Delivery Method Room Air Weight: 80.8 kg Body Mass Index (BMI) 25.5 Intake & Output: Intake and Output for Last 24 Hours 05/26/21 05/27/21 05/28/21 23:59 23:59 23:59 Intake Total 1883.75 / 1883.75 1347.5 / 1347.5 Balance 1883.75 / 1883.75 1347.5 / 1347.5 Lab / Micro Data Result Diagrams: 05/28/21 06:46 05/28/21 06:46 Labs: Laboratory Results - last 24 hr 05/26/21 21:20: Phosphorus 2.2 L, Magnesium 2.0 05/27/21 17:07: POC Glucose 127 H 05/27/21 22:41: POC Glucose 137 H 05/28/21 04:56: POC Glucose 87 05/28/21 06:26: POC Glucose 98 05/28/21 06:46: WBC 4.7, RBC 3.81 L, Hgb 12.4 L, Hct 36.4 L, MCV 95.5 H, MCH 32.5 H, MCHC 34.1, RDW Std Deviation 39.9, RDW Coeff of Robert 11.4 L, Plt Count 81 L, MPV 10.4, Immature Gran % (Auto) 0.400, Neut % (Auto) 85.8 H, Lymph % (Auto) 11.5 L, [place] % (Auto) 2.1, Eos % (Auto) 0.0, Baso % (Auto) 0.2, Absolute Neuts (auto) 4.0, Absolute Lymphs (auto) 0.54 L, Nucleated RBC % 0, Platelet Estimate MOD DEC 05/28/21 06:46: Sodium 138, Potassium 3.5, Chloride 110 H, Carbon Dioxide 23.0, Anion Gap 5, BUN 19 H, Creatinine 1.69 H, Estim Creat Clear Calc 41.40, Est GFR (MDRD) Af Amer 52 L, Est GFR (MDRD) Non-Af 43 L, BUN/Creatinine Ratio 11.2, Glucose 103, Calcium 7.6 L, Total Bilirubin 0.40, AST 43 H, ALT 22, Alkaline Phosphatase 36 L, Total Protein 5.7 L, Albumin 2.7 L, Globulin 3.0, Albumin/Globulin Ratio 0.9 05/28/21 11:18: POC Glucose 104 Micro: Microbiology 05/27/21 06:04 Nasal Secretion SARS-CoV-2 Antigen (Rapid) - Final SARS-CoV-2 (COVID 19) Physical Exam Narrative Physical exam: General: Alert, Oriented x3, Cooperative, No apparent distress, appears generally frail, slightly improved HEENT: Atraumatic Oral: Moist Mucosa Neck: Supple Lungs: Clear to auscultation Cardiovascular: HS I+II, regular, no murmurs Abdomen: Bowel Sounds Present, Soft, Non Tender Extremities: No edema Assessment & Plan Assessment/Plan (1) Unable to ambulate: (2) LIVE (acute kidney injury): (3) Fever: QUALIFIERS: Fever type: unspecified Qualified Code(s): R50.9 - Fever, unspecified (4) CKD (chronic kidney disease) stage 3, GFR 30-59 ml/min: QUALIFIERS: Chronic kidney disease stage 3 subtype: stage 3b (GFR 30-44) Qualified Code(s): N18.32 - Chronic kidney disease, stage 3b PLAN: 1. Debility related to current acute COVID-19 infection PT and OT to evaluate and treat 2. Acute COVID-19 infection without pneumonia or hypoxia Patient remains in isolation 3. LIVE on chronic kidney disease stage IIIb Baseline creatinine of about 1.5-1.7. Creatinine on admission was 2.19.Creatinine improved to 1.69 Home losartan on hold Patient is able to take oral intake. Will discontinue IV fluids in the light of current Covid infection. 4. Type II DM, blood sugars controlled, continue on Tradjenta 5. History of DVT, continue on Eliquis 6. Rest of chronic medical conditions including hyperlipidemia, COPD, hypertension remained stable Continue to hold losartan in light of LIVE. Awaiting discharge to intermediate facility Charges/Coding Visit Charges Inpatient E&M: 13653 Subs Hosp L2
[2021-05-28 15:15] VITALS: BP 129/54; PULSE 74; RESP 18; TEMP 37.7; O2SAT 95
[2021-05-28 18:06] LABS: Bedside Glucose 110 mg/dL (70-110)
[2021-05-28 21:15] VITALS: BP 137/57; PULSE 74; RESP 20; TEMP 37.9; O2SAT 95
[2021-05-28] MEDS: Pravastatin 20 MG Tablet PO (21:20)
[2021-05-28 21:28] VITALS: O2SAT 95
[2021-05-28 21:30] LABS: Bedside Glucose 103 mg/dL (70-110)
[2021-05-29 03:15] VITALS: BP 119/62; PULSE 79; RESP 19; TEMP 37.9; O2SAT 93
[2021-05-29] MEDS: Acetaminophen 325 MG Tablet 650 MG PO (04:46)
[2021-05-29 05:55] LABS: Absolute Lymphocyte Count 1.02 X10^3/uL (0.83-4.51); Absolute Neutrophil Count 1.8 X10^3/uL (2.0-7.7); Hematocrit 34.4 % (40-54); Lymphocyte # 1.02 X10^3/ul (0.83-4.51); Mean Corp Hgb Conc 34.9 g/dL (32-36); Mean Corpuscular Volume 94.5 fL (80-94); Mean Platelet Vol. 11.2 fl (6.2-12.0); Monocyte# 0.14 X10^3/uL; Monocyte% 4.7 % (0-10); NRBC Flagged by Analyzer 0 % (0-5); Neutrophil # 1.83 X10^3/uL (2.7-7.7); POSITIVE COUNT YES; Platelet Count 70 K/mm3 (150-450); RBC Distribution Width CV 11.2 % (11.6-14.6); RBC Distribution Width SD 39.3 fl (35.1-43.9); Red Blood Count 3.64 M/mm3 (4.6-6.2)
[2021-05-29 06:34] LABS: ALB/GLOB Ratio 0.9 RATIO (0.9-2.4); AST(SGOT) 49 U/L (15-37); Alanine Aminotransfer ALT/SGPT 24 U/L (16-61); Albumin, Serum 2.5 g/dL (3.2-5.0); Alkaline Phosphatase 34 U/L (45-117); Anion Gap 8 (5-15); BUN 16 mg/dL (7-18); BUN/Creat Ratio 10.9 RATIO (10-20); Calcium,Total 7.4 mg/dL (8.5-10.1); Chloride 107 mmol/L (98-107); Creatinine, Serum 1.47 mg/dL (0.70-1.30); EST Glomerular Filtration Rate 50 mL/min (>60); Est Glom Filt Rate - Afr Amer 61 mL/min (>60); Estimated Creatinine Clearance 47.59 ml/min; Globulin 2.8 g/dL (2.2-4.2); Glucose 92 mg/dL (74-106); Potassium 3.5 mmol/L (3.5-5.1); Protein, Total 5.3 g/dL (6.4-8.2); Sodium Level 136 mmol/L (136-145)
[2021-05-29 06:42] VITALS: TEMP 36.9
[2021-05-29 06:51] LABS: Bedside Glucose 90 mg/dL (70-110)
[2021-05-29 07:11] LABS: Differential Indicated SCAN CRITERIA MET
[2021-05-29 07:50] VITALS: O2SAT 96
[2021-05-29 08:46] VITALS: BP 121/52; PULSE 72; RESP 18; TEMP 37.2; O2SAT 92
[2021-05-29] MEDS: Na Biphos/Potassium Phosphate PACKET 1 PACKET PO ×3 (08:48→17:10)
[2021-05-29] MEDS: APIXABAN 5 MG TABLET PO ×2 (08:48→21:42)
[2021-05-29] MEDS: LINAGLIPTIN 5 MG TABLET PO (08:48)
[2021-05-29 11:41] LABS: Bedside Glucose 102 mg/dL (70-110)
--- NOTE | 2021-05-29 12:12 | CASEMGMT ---
HARLEY COATES Assessment: Face to Face with patient for initial transition planning/care coordination assessment. HARLEY COATES introduced self and role at [facility], voices understanding. Care providers, pharmacy, and demographics verified. PCP: Jonathan Weaver Specialists: None Preferred Pharmacy: [facility] Insurance: [employer] [facility] Prescription Benefit: Yes Living Will/HPOA: Does not have and is not intested in any information. LNOK: Estephanie Guo Living Arrangements: Pt lives with his in a split level home with steps between floors but no steps to enter through the garage. Pt reports being independent with ADLs prior to admission and denies any difficulty with the stairs. Transportation: Pt drives, his is also able to assist with driving. DME/HHC/SNF: Pt denies any current DME and denies any previous SNF or HHC providers Plan: Pt's goal is to return home with his . States his will be able to assist him as needed. States she has not been ill. States he will be able to isolate with his own bedroom and bathroom. Pt states he is ready to return home today. States he is able to ambulate in the room with assistance only for the wires needed. Pt denies any DME or other discharge needs at this time. Will continue to monitor and assist with needs as identified. Naz Rodriguez RN CM
[2021-05-29 15:07] VITALS: BP 129/62; PULSE 73; RESP 18; TEMP 37.4; O2SAT 92
[2021-05-29 16:01] LABS: Bedside Glucose 101 mg/dL (70-110)
[2021-05-29] MEDS: dexAMETHasone 4 MG Tablet 6 MG PO (17:11)
--- NOTE | 2021-05-29 18:41 | PN.HOSP_ITS ---
Subjective Subjective Patient states he has been feeling a little bit better today. He would like to go home but unfortunately his oxygen saturations have been decreasing since he has been here. He remains on room air but oxygen saturations are down to 92% from 99% on room air at admission. He denies any shortness of breath. He is having an intermittent dry cough. Objective Data Objective Data Vital Signs: Vital Signs Temp Pulse Resp BP Pulse Ox 99.4 F H 73 18 129/62 H 92 05/29/21 15:07 05/29/21 15:07 05/29/21 15:07 05/29/21 15:07 05/29/21 15:07 Oxygen Delivery Method Room Air Weight: 80.8 kg Body Mass Index (BMI) 25.5 Intake & Output: Intake and Output for Last 24 Hours 05/27/21 05/28/21 05/29/21 23:59 23:59 23:59 Intake Total 1883.75 / 1883.75 2445.0 / 2845.0 1570 / 1570 Balance 1883.75 / 1883.75 2445.0 / 2845.0 1570 / 1570 Lab / Micro Data Result Diagrams: 05/29/21 05:10 05/29/21 05:10 Labs: Laboratory Results - last 24 hr 05/28/21 21:24: POC Glucose 103 05/29/21 05:10: WBC 3.0 L, RBC 3.64 L, Hgb 12.0 L, Hct 34.4 L, MCV 94.5 H, MCH 33.0 H, MCHC 34.9, RDW Std Deviation 39.3, RDW Coeff of Robert 11.2 L, Plt Count 70 L, MPV 11.2, Immature Gran % (Auto) 0.300, Neut % (Auto) 61.0, Lymph % (Auto) 34.0, [place] % (Auto) 4.7, Eos % (Auto) 0.0, Baso % (Auto) 0.0, Absolute Neuts (auto) 1.8 L, Absolute Lymphs (auto) 1.02, Nucleated RBC % 0 05/29/21 05:10: Sodium 136, Potassium 3.5, Chloride 107, Carbon Dioxide 21.0, Anion Gap 8, BUN 16, Creatinine 1.47 H, Estim Creat Clear Calc 47.59, Est GFR (MDRD) Af Amer 61, Est GFR (MDRD) Non-Af 50 L, BUN/Creatinine Ratio 10.9, Glucose 92, Calcium 7.4 L, Total Bilirubin 0.30, AST 49 H, ALT 24, Alkaline Phosphatase 34 L, Total Protein 5.3 L, Albumin 2.5 L, Globulin 2.8, A lbumin/Globulin Ratio 0.9 05/29/21 06:40: POC Glucose 90 05/29/21 11:32: POC Glucose 102 05/29/21 15:54: POC Glucose 101 Micro: Microbiology 05/27/21 06:53 Blood Culture (Wb) - Anticubital Left Blood Culture - Preliminary No growth in 48 hours. 05/27/21 06:22 Blood Culture (Wb) - Anticubital Left Blood Culture - Preliminary No growth in 48 hours. 05/27/21 06:04 Nasal Secretion SARS-CoV-2 Antigen (Rapid) - Final SARS-CoV-2 (COVID 19) Physical Exam Const alert, oriented x3, no apparent distress and average body habitus Constitutional Narrative: Older white male who seems older than stated age, sitting up in bed, nontoxic, appears comfortable, no signs of distress at this time Exam Limitations: no limitations HEENT head/scalp atraumatic, moist oral mucous membranes and oropharynx normal Head and Scalp: normocephalic Resp normal respiratory effort, no retractions and no use of accessory muscles Resp Narrative: Scattered bilateral crackles Auscultation: crackles; Negative for rales, rhonchi or wheezes Cardio regular rate, regular rhythm, S1 normal heart sound, S2 normal heart sound, no murmurs, no rub, no gallops, no clicks and no JVD GI normal to inspection, nondistended, normoactive bowel sounds, soft to palpation, non-tender and non-distended Extremity no clubbing, cyanosis or edema Peripheral Pulses: Yes pulses 2+ throughout Neuro oriented x3, CN's II-XII intact bilaterally, moves all extremities and no focal motor deficits Sensorium / Orientation: awake and alert Speech: speech normal Psych affect normal Assessment & Plan Assessment/Plan (1) COVID-19 virus infection: (2) Fever: QUALIFIERS: Fever type: unspecified Qualified Code(s): R50.9 - Fever, unspecified (3) Unable to ambulate: PLAN: COVID-19 infection -Suspect this is the reason for his increasing debility at home -With worsening oxygenation status will hold off on discharge and monitor closely as I feel he is extremely high risk to decompensate -Patient remains on room air but oxygen saturations have reduced from 99% to 92% on room air since admission -With relative hypoxia we will start remdesivir and Decadron day 1 of 5 and day 1 of 10 respectively -I-S -Continue therapy services -Monitor for further hypoxia -If patient remains stable from an oxygenation status may be able to be discharged home -Symptoms started approximately 5 to 7 days ago -Will need isolation until June 11, 2021 if he continues to worsen -Patient is nonvaccinated Debility/inability to ambulate -Improved -Continue therapy services Leukopenia/thrombocytopenia -Likely related to acute COVID-19 infection -Continue to monitor counts LIVE on CKD stage IIIb -Serum creatinine has returned to baseline -Continue supplemental IV fluids -Monitor closely History of DVT -Continue apixaban History of melanoma -Remote stable Hypertension/hyperlipidemia -Continue losartan -Continue pravastatin DM-2 -Continue Tradjenta -We will start sliding scale and ACH S blood sugar checks with initiation of st eroids DVT prophylaxis -Full anticoagulated CODE STATUS -Full code Charges/Coding Visit Charges Inpatient E&M: 06047 Subs Hosp L2
[2021-05-29 21:07] VITALS: BP 128/69; PULSE 72; RESP 16; TEMP 37.7; O2SAT 93
[2021-05-29 21:41] LABS: Bedside Glucose 144 mg/dL (70-110)
[2021-05-29] MEDS: Pravastatin 20 MG Tablet PO (21:42)
[2021-05-30 03:07] VITALS: BP 123/64; PULSE 61; RESP 16; TEMP 36.9; O2SAT 94
[2021-05-30] MEDS: Acetaminophen 325 MG Tablet 650 MG PO (03:18)
[2021-05-30] MEDS: Insulin Lispro 100 UNIT/ML INSULN.PEN SC ×2 (06:23→12:17)
[2021-05-30 06:27] LABS: Hematocrit 36.8 % (40-54); Hemoglobin 12.6 g/dL (13.0-16.5); Mean Corp Hgb Conc 34.2 g/dL (32-36); Mean Corpuscular Hgb 32.4 pg (27.0-32.0); Mean Corpuscular Volume 94.6 fL (80-94); Mean Platelet Vol. 11.2 fl (6.2-12.0); POSITIVE COUNT YES; Platelet Count 79 K/mm3 (150-450); RBC Distribution Width CV 11.3 % (11.6-14.6); RBC Distribution Width SD 39.4 fl (35.1-43.9); Red Blood Count 3.89 M/mm3 (4.6-6.2); White Blood Count 1.6 K/mm3 (4.4-11.0)
[2021-05-30 06:50] LABS: Bedside Glucose 209 mg/dL (70-110)
[2021-05-30 06:51] LABS: ALB/GLOB Ratio 0.8 RATIO (0.9-2.4); AST(SGOT) 49 U/L (15-37); Alanine Aminotransfer ALT/SGPT 25 U/L (16-61); Albumin, Serum 2.4 g/dL (3.2-5.0); Alkaline Phosphatase 35 U/L (45-117); Anion Gap 11 (5-15); BUN 21 mg/dL (7-18); Calcium,Total 7.7 mg/dL (8.5-10.1); Chloride 108 mmol/L (98-107); EST Glomerular Filtration Rate 49 mL/min (>60); Est Glom Filt Rate - Afr Amer 59 mL/min (>60); Estimated Creatinine Clearance 46.64 ml/min; Globulin 3.2 g/dL (2.2-4.2); Glucose 203 mg/dL (74-106); Potassium 4.3 mmol/L (3.5-5.1); Protein, Total 5.6 g/dL (6.4-8.2); Sodium Level 138 mmol/L (136-145)
--- NOTE | 2021-05-30 08:27 | PN.HOSP_ITS ---
Objective Data Objective Data Vital Signs: Vital Signs Temp Pulse Resp BP Pulse Ox 98.4 F 61 16 123/64 H 94 05/30/21 03:07 05/30/21 03:07 05/30/21 03:07 05/30/21 03:07 05/30/21 03:07 Oxygen Delivery Method Room Air Weight: 80.8 kg Body Mass Index (BMI) 25.5 Intake & Output: Intake and Output for Last 24 Hours 05/28/21 05/29/21 05/30/21 23:59 23:59 23:59 Intake Total 2445.0 / 2845.0 1810 / 1810 240 / 240 Balance 2445.0 / 2845.0 1810 / 1810 240 / 240 Lab / Micro Data Result Diagrams: 05/30/21 05:30 05/30/21 05:30 Labs: Laboratory Results - last 24 hr 05/29/21 11:32: POC Glucose 102 05/29/21 15:54: POC Glucose 101 05/29/21 21:22: POC Glucose 144 H 05/30/21 05:30: WBC 1.6 L, RBC 3.89 L, Hgb 12.6 L, Hct 36.8 L, MCV 94.6 H, MCH 32.4 H, MCHC 34.2, RDW Std Deviation 39.4, RDW Coeff of Robert 11.3 L, Plt Count 79 L, MPV 11.2 05/30/21 05:30: Sodium 138, Potassium 4.3, Chloride 108 H, Carbon Dioxide 19.0 L , Anion Gap 11, BUN 21 H, Creatinine 1.50 H, Estim Creat Clear Calc 46.64, Est GFR (MDRD) Af Amer 59 L, Est GFR (MDRD) Non-Af 49 L, BUN/Creatinine Ratio 14.0, Glucose 203 H, Calcium 7.7 L, Total Bilirubin 0.30, AST 49 H, ALT 25, Alkaline Phosphatase 35 L, Total Protein 5.6 L, Albumin 2.4 L, Globulin 3.2, Albumin/Globulin Ratio 0.8 L 05/30/21 06:18: POC Glucose 209 H Micro: Microbiology 05/27/21 06:53 Blood Culture (Wb) - Anticubital Left Blood Culture - Preliminary No growth in 48 hours. 05/27/21 06:22 Blood Culture (Wb) - Anticubital Left Blood Culture - Prel iminary No growth in 48 hours. 05/27/21 06:04 Nasal Secretion SARS-CoV-2 Antigen (Rapid) - Final SARS-CoV-2 (COVID 19) Assessment & Plan Assessment/Plan (1) COVID-19 virus infection: (2) Fever: QUALIFIERS: Fever type: unspecified Qualified Code(s): R50.9 - Fever, unspecified (3) Unable to ambulate: PLAN: COVID-19 infection -Suspect this is the reason for his increasing debility at home -With worsening oxygenation status will hold off on discharge and monitor closely as I feel he is extremely high risk to decompensate -Patient remains on room air but oxygen saturations have reduced from 99% to 92% on room air since admission -With relative hypoxia we will start remdesivir and Decadron day 1 of 5 and day 1 of 10 respectively -I-S -Continue therapy services -Monitor for further hypoxia -If patient remains stable from an oxygenation status may be able to be discharged home -Symptoms started approximately 5 to 7 days ago -Will need isolation until June 11, 2021 if he continues to worsen -Patient is nonvaccinated Debility/inability to ambulate -Improved -Continue therapy services Leukopenia/thrombocytopenia -Likely related to acute COVID-19 infection -Continue to monitor counts LIVE on CKD stage IIIb -Serum creatinine has returned to baseline -Continue supplemental IV fluids -Monitor closely History of DVT -Continue apixaban History of melanoma -Remote stable Hypertension/hyperlipidemia -Continue losartan -Continue pravastatin DM-2 -Continue Tradjenta -We will start sliding scale and ACH S blood sugar checks with initiation of steroids DVT prophylaxis -Full anticoagulated CODE STATUS -Full code
[2021-05-30 09:05] VITALS: BP 92/62; PULSE 65; RESP 18; TEMP 36.3; O2SAT 96
[2021-05-30 09:37] VITALS: O2SAT 95; O2SAT 96
[2021-05-30] MEDS: dexAMETHasone 4 MG Tablet 6 MG PO (09:48)
[2021-05-30] MEDS: APIXABAN 5 MG TABLET PO (09:48)
[2021-05-30] MEDS: LINAGLIPTIN 5 MG TABLET PO (09:49)
--- NOTE | 2021-05-30 10:12 | CASEMGMT ---
Per Sam RN, pt does not qualify for home oxygen. Therapy signed off on pt several days ago as they said pt did not demonstrate need for therapy. This RN CM to room and pt declines need for any further therapy at discharge. Pt voices no further questions/concerns/needs. Marcello RN CM
[2021-05-30 12:41] LABS: Bedside Glucose 229 mg/dL (70-110)
--- NOTE | 2021-05-30 14:07 | DS.PCM_ITS ---
Providers Date of Admission: 05/27/21 Primary Care Physician: Dr. Oscar Weaver, DO Reason For Visit: DEBILITY Diagnosis Discharge Diagnosis (1) COVID-19 virus infection: Status: Acute Code(s): U07.1 - COVID-19 (2) Fever: Status: Acute Code(s): R50.9 - Fever, unspecified Qualifiers: Fever type: unspecified Qualified Code(s): R50.9 - Fever, unspecified (3) Unable to ambulate: Status: Acute Code(s): R26.2 - Difficulty in walking, not elsewhere classified Medications at Discharge Home Medications losartan 25 mg tablet 25 mg PO QDAY #90 tab 01/11/21 pravastatin 20 mg tablet 20 mg PO QDAY #90 tab 01/11/21 sitagliptin 100 mg tablet 100 mg PO QDAY #90 tab 01/11/21 Eliquis 5 mg PO DAILY 05/26/21 dexamethasone 6 mg PO DAILY #7 tab 05/30/21 Hospital Course Summary of Care Provided Minutes Spent on Discharge: 35 Hospital Course: Patient is a 70-year-old gentleman vaccinated against COVID-19 presented with generalized weakness. His SARS-CoV-2 assay came back positive 1. COVID-19 infection ?Resulting in significant debility. Patient was managed on Decadron and remdesivir. He did have a rather rapid improvement in his overall condition necessitating patient being discharged 3 days after his admission. He was instructed to further isolate for additional 7 days 2. Physical deconditioning - Requested for PT OT eval and social media marketer to assist with discharge planning 3. Previous history of DVT ?Patient is on apixaban 4. Acute on chronic chronic kidney disease stage IIIb ?Kidney function at baseline at the time of discharge. Creatinine on admission was 2.19 did improve with rehydration 5. Leukopenia/thrombocytopenia -Likely related to acute COVID-19 infection -Continue to monitor counts 6. History of melanoma -Remote stable 7. Hypertension - Blood pressure controlled, home medications continued with dose adjustment as needed 8. Assessment dyslipidemia 9. Diabetes mellitus type II --Continued Tradjenta. Placed on long acting insulin, Accu-Cheks a.c. and at bedtime and covered with sliding scale insulin Physical Exam Narrative GENERAL: cooperative HEENT: Atraumatic; EYES; Anicteric, Normal Conjunctiva NECK; supple, normal thyroid, RESPIRATORY: Diminished to auscultation CARDIOVASCULAR: Regular S1 S2, GI: soft, normoactive bowel sounds, SKIN: No Rash PSYCH; Flat affect Weight / BMI Weight Weight: 80.8 kg Body Mass Index (BMI) 25.5 ABG / Lab / Microbiology Data Result Diagrams: 05/30/21 05:30 05/30/21 05:30 Laboratory: Laboratory Results - last 24 hr 05/29/21 15:54: POC Glucose 101 05/29/21 21:22: POC Glucose 144 H 05/30/21 05:30: WBC 1.6 L, RBC 3.89 L, Hgb 12.6 L, Hct 36.8 L, MCV 94.6 H, MCH 32.4 H, MCHC 34.2, RDW Std Deviation 39.4, RDW Coeff of Robert 11.3 L, Plt Count 79 L, MPV 11.2 05/30/21 05:30: Sodium 138, Potassium 4.3, Chloride 108 H, Carbon Dioxide 19.0 L , Anion Gap 11, BUN 21 H, Creatinine 1.50 H, Estim Creat Clear Calc 46.64, Est GFR (MDRD) Af Amer 59 L, Est GFR (MDRD) Non-Af 49 L, BUN/Creatinine Ratio 14.0, Glucose 203 H, Calcium 7.7 L, Total Bilirubin 0.30, AST 49 H, ALT 25, Alkaline Phosphatase 35 L, Total Protein 5.6 L, Albumin 2.4 L, Globulin 3.2, Albumin/Globulin Ratio 0.8 L 05/30/21 06:18: POC Glucose 209 H 05/30/21 12:16: POC Glucose 229 H Microbiology: Microbiology 05/27/21 06:53 Blood Culture (Wb) - Anticubital Left Blood Culture - Preliminary No growth in 48 hours. 05/27/21 06:22 Blood Culture (Wb) - Anticubital Left Blood Culture - Preliminary No growth in 48 hours. 05/27/21 06:04 Nasal Secretion SARS-CoV-2 Antigen (Rapid) - Final SARS-CoV-2 (COVID 19) D/C Instructions Discharge Diet: No restrictions Discharge Activity: Return to Normal Activity Call your doctor if you observe: Fever of 101 or Higher, Shortness of breath, Fainting spells and Chest pain Meaningful Use Info Meaningful Use Diagnoses (Choose all that apply): None applicable Discharge Plan Admission Admit Date/Time: 05/27/21 10:34 Attending Provider: Chaim Pinon Primary Care Provider: Oscar Weaver Discharge Orders/Prescriptions Prescriptions: New dexamethasone 4 mg Tablet 6 mg PO DAILY Qty: 7 RF: 0 Continued losartan 25 mg tablet 25 mg PO QDAY Qty: 90 RF: 3 sitagliptin 100 mg tablet 100 mg PO QDAY Qty: 90 RF: 1 pravastatin 20 mg tablet 20 mg PO QDAY Qty: 90 RF: 2 Eliquis 5 mg tablet 5 mg PO DAILY RF: 0 Referrals / Follow Up: Oscar Weaver DO [Primary Care Provider] - 5-7 Days Disposition Disposition (needs filled in before D/C Order can be placed): Home, Self Care Charges/Coding Visit Charges Inpatient E&M: 40951 Disch Hosp
--- NOTE | 2021-05-30 14:14 | PCM.DC ---
Discharge Instructions Diet Discharge Diet: No restrictions Dressing / Incision Call your doctor if you observe: Fever of 101 or Higher, Shortness of breath, Fainting spells and Chest pain Follow Up Care Test Results: Test results from this visit will be discussed in further detail at your follow-up appointment, if applicable. Discharge Plan Admission Admit Date/Time: 05/27/21 10:34 Attending Provider: Chaim Pinon Primary Care Provider: Oscar Weaver Discharge Orders/Prescriptions Prescriptions: New dexamethasone 4 mg Tablet 6 mg PO DAILY Qty: 7 RF: 0 Continued losartan 25 mg tablet 25 mg PO QDAY Qty: 90 RF: 3 sitagliptin 100 mg tablet 100 mg PO QDAY Qty: 90 RF: 1 pravastatin 20 mg tablet 20 mg PO QDAY Qty: 90 RF: 2 Eliquis 5 mg tablet 5 mg PO DAILY RF: 0 Referrals / Follow Up: Oscar Weaver DO [Primary Care Provider] - 5-7 Days Disposition Disposition (needs filled in before D/C Order can be placed): Home, Self Care
[2021-05-30 14:25] VITALS: BP 92/62; PULSE 65; RESP 18; TEMP 36.3; O2SAT 96
--- NOTE | 2021-06-01 14:15 | CASEMGMT ---
HARLEY COATES Discharge Follow-up Phone Call: CHRYSTAL: Amita Strata: 3 Call Date: 06/01/21 Discharge Date: 05/30/21 Time of Call: [id number] Admitting Diagnosis: COVID This HARLEY COATES contacted pt via phone for discharge follow-up. Pt states he weak but doing ok. Pt denies any SOB. States he is able to ambulate around his home without difficulty and states I just take my time. Pt states he obtained his prescription and is taking it as directed. States he is trying to stay distanced from his by sitting on the opposite ends of the room. Pt states he has a follow-up appointment with his PCP next week. Pt denies any questions about his discharge instructions or any concerns. Paulo Rodriguez RN CM
== END 2021-05-30 16:09 | disposition home or self-care (01) | DRG 179 ==
LOC: ED 05-27 04:44 → MS2 05-27 07:02 → PCU 05-27 12:54
PROVIDERS: Internal Medicine; Admitting Provider Hospitalist; Emergency Provider Emergency Medicine; PCP Family Medicine; Visit Provider Internal Medicine
DX: U07.1 COVID-19 (principal); I44.0 Atrioventricular block, first degree; I49.3 Ventricular premature depolarization; I45.10 Unspecified right bundle-branch block; R26.2 Difficulty in walking, not elsewhere classified; D69.59 Other secondary thrombocytopenia; R09.02 Hypoxemia; E11.65 Type 2 diabetes mellitus with hyperglycemia; R53.81 Other malaise; I12.9 Hypertensive chronic kidney disease with stage 1 through stage 4 chronic kidney disease, or unspecified chronic kidney disease; E11.22 Type 2 diabetes mellitus with diabetic chronic kidney disease; N18.32 Chronic kidney disease, stage 3b; E78.5 Hyperlipidemia, unspecified; J44.9 Chronic obstructive pulmonary disease, unspecified; Z85.820 Personal history of malignant melanoma of skin; Z86.718 Personal history of other venous thrombosis and embolism; Z79.01 Long term (current) use of anticoagulants; Z79.899 Other long term (current) drug therapy; F17.200 Nicotine dependence, unspecified, uncomplicated
CPT/HCPCS: 36415; 70450; 71045; 80053; 81001; 82962; 83735; 84100; 85025; 85027; 87040; 87426; 93005; 97161; 97165; 99285; 99406; J7030; J7040; J7050; A4216

== ENCOUNTER → 2021-07-26 09:02 | Outpatient (CLI) | payer MEDICARE, SELFPAY ==
[2021-07-26 12:37] LABS: Absolute Lymphocyte Count 1.23 X10^3/uL (0.83-4.51); Absolute Neutrophil Count 1.9 X10^3/uL (2.0-7.7); Basophil# 0.03 X10^3/uL; Basophil% 0.8 % (0-1); Eosinophil# 0.11 X10^3/uL; Hematocrit 39.2 % (40-54); Hemoglobin 13.3 g/dL (13.0-16.5); Lymphocyte # 1.23 X10^3/ul (0.83-4.51); Lymphocyte % 33.5 % (19-41); Mean Corp Hgb Conc 33.9 g/dL (32-36); Mean Corpuscular Hgb 32.4 pg (27.0-32.0); Mean Corpuscular Volume 95.6 fL (80-94); Mean Platelet Vol. 10.3 fl (6.2-12.0); Monocyte# 0.37 X10^3/uL; Monocyte% 10.1 % (0-10); NRBC Flagged by Analyzer 0 % (0-5); Neutrophil # 1.89 X10^3/uL (2.7-7.7); Neutrophil % 51.5 % (47-70); Platelet Count 183 K/mm3 (150-450); RBC Distribution Width CV 12.1 % (11.6-14.6); RBC Distribution Width SD 42.5 fl (35.1-43.9); White Blood Count 3.7 K/mm3 (4.4-11.0)
== END ==
PROVIDERS: PCP Family Medicine; Referring Provider Family Medicine; Visit Provider Family Medicine
DX: E11.9 Type 2 diabetes mellitus without complications (principal)
CPT/HCPCS: 36415; 85025

== ENCOUNTER → 2022-03-01 | Outpatient (CLI) | payer MEDICARE, SELFPAY ==
[2022-03-01 09:18] LABS: BUN 20 mg/dL (7-18); BUN/Creat Ratio 12.3 RATIO (10-20); Calcium,Total 8.9 mg/dL (8.5-10.1); Chloride 113 mmol/L (98-107); Creatinine, Serum 1.62 mg/dL (0.70-1.30); EST Glomerular Filtration Rate 45 mL/min (>60); Est Glom Filt Rate - Afr Amer 54 mL/min (>60); Glucose 123 mg/dL (74-106); Sodium Level 143 mmol/L (136-145)
== END | disposition home or self-care (01) ==
PROVIDERS: PCP Family Medicine; Referring Provider Internal Medicine Nephrology; Visit Provider Internal Medicine Nephrology
DX: N18.32 Chronic kidney disease, stage 3b (principal)
CPT/HCPCS: 36415; 80069

== ENCOUNTER → 2022-05-03 | Outpatient (CLI) | payer MEDICARE, SELFPAY ==
[2022-05-03 15:39] LABS: CRP < 2.90 mg/L (0.0-3.0); LDH 164 U/L (87-241)
[2022-05-03 16:16] LABS: Erythrocyte Sedimentation Rate 4 mm/hr (0-20)
[2022-05-05 14:08] LABS: Anti-Centromere B Ab <0.2 AI (0.0-0.9); Anti-Chromatin <0.2 AI (0.0-0.9); Anti-Jo <0.2 AI (0.0-0.9); Anti-Scleroderma-70 AB <0.2 AI (0.0-0.9); RNP Ab <0.2 AI (0.0-0.9); SJOGREN'S Anti-SS-A test < 0.2 AI (0.0-0.9); SJOGREN'S Anti-SS-B test < 0.2 AI (0.0-0.9); Smith Ab <0.2 AI (0.0-0.9)
[2022-05-06 08:55] LABS: Anti-dsDNA Ab 1 IU/mL (0-9)
[2022-05-07 16:09] LABS: Endomysial Antibody IgA Negative (Negative)
[2022-05-09 14:10] LABS: Immunoglobulin A 80 mg/dL (61-437); t-Transglutaminase IgA <2 U/mL (0-3)
[2022-05-10 17:07] LABS: Albumin 3.8 g/dL (2.9-4.4); Alpha-1-Globulins 0.2 g/dL (0.0-0.4); Alpha-2-Globulins 0.8 g/dL (0.4-1.0); Gamma Globulin 0.6 g/dL (0.4-1.8); Immunoglobulin A 83 mg/dL (61-437); Immunoglobulin G 596 mg/dL (603-1613); Immunoglobulin M 29 mg/dL (15-143); PROEL- TOTAL PROTEIN 6.2 g/dL (6.0-8.5)
[2022-05-10 17:36] LABS: Cytoplasmic Ab (C-ANCA) <1:20 titer (Neg:<1:20); Immunoglobulin E 12 IU/mL (6-495); Perinuclear Ab (P-ANCA) <1:20 titer (Neg:<1:20)
== END | disposition home or self-care (01) ==
LOC: LAB 14:41
PROVIDERS: PCP Family Medicine; Referring Provider Internal Medicine Gastroenterology; Visit Provider Internal Medicine Gastroenterology
DX: R10.30 Lower abdominal pain, unspecified (principal)
CPT/HCPCS: 36415; 82784; 82785; 83516; 83615; 84165; 85652; 86140; 86225; 86235; 86255; 86256; 86334

== ENCOUNTER → 2022-05-04 | Outpatient (CLI) | payer MEDICARE, SELFPAY ==
[2022-05-10 08:49] LABS: Calprotectin, Stool 25 ug/g (0-120)
[2022-05-10 13:23] LABS: Pancreatic Elastase, Fecal 185 (>200)
== END | disposition home or self-care (01) ==
LOC: LABSPEC 10:03
PROVIDERS: PCP Family Medicine; Referring Provider Internal Medicine Gastroenterology; Visit Provider Internal Medicine Gastroenterology
DX: R10.11 Right upper quadrant pain (principal); K58.9 Irritable bowel syndrome, unspecified; R10.30 Lower abdominal pain, unspecified
CPT/HCPCS: 82653; 83630; 83993; 87506

== ENCOUNTER → 2022-05-10 | Outpatient (CLI) | payer MEDICARE, SELFPAY ==
--- NOTE | 2022-05-10 16:30 | CT_ITS ---
STUDY: CT Abdomen And Pelvis W/ Contrast Injection 05/10/2022 7:48 PM REASON FOR EXAM: Male, 71 years old. Abdominal pain LLQ abdominal pain and 60lb weight loss Individualized dose optimization techniques were used for this CT. COMPARISON: 12/12/2020 . TECHNIQUE: CT Abdomen And Pelvis W/ Contrast Injection Oral and amp; IV Readi-CAT and amp; 100mL Isovue-370 FINDINGS: There are atherosclerotic calcifications of visualized coronary arteries. The visualized portions of the heart are within normal limits. Normal liver. Normal gallbladder and extrahepatic biliary system. Normal spleen. Normal pancreas. Normal bilateral adrenal glands. There are hypodensities in the right kidney. These are consistent for cysts. No follow up required. There are hypodensities in the left kidney. These are consistent for cysts. No follow up required. These are stable. Normal visualized stomach. Normal small intestine. There are multiple colonic diverticula consistent with diverticulosis. There is non-visualization of the appendix. There are calcifications of the abdominal aorta. This is consistent for atherosclerotic disease. There is NO abdominal aortic aneurysm. Vascular workup can be obtained based on clinical correlation. Normal inferior vena cava. Subcentimeter mesenteric lymph nodes. Normal urinary bladder. There are bilateral inguinal hernias containing fat. There is no bowel involvement. There is no incarceration. There is no findings suggesting that this is causing a bowel obstruction. . There is an umbilical hernia containing fat. There are diffuse degenerative changes of the visualized lumbar spine. CT/Abdomen/Pelvis WITH Contrast IMPRESSION: (NOT LISTED IN ORDER OF SIGNIFICANCE) There are no acute findings. There are multiple colonic diverticula consistent with diverticulosis. Other findings as above. Electronically Signed: Juan David Delgado MD at 19:51 EDT ,
[2022-05-10 16:55] LABS: CREATININE FINGERSTICK 1.4 mg/dL (0.70-1.30)
== END | disposition home or self-care (01) ==
LOC: CT 16:30
PROVIDERS: PCP Family Medicine; Referring Provider Internal Medicine Gastroenterology; Visit Provider Internal Medicine Gastroenterology
DX: R10.9 Unspecified abdominal pain (principal)
CPT/HCPCS: 74177; Q9967

== ENCOUNTER → 2022-05-29 | Outpatient (CLI) | payer MEDICARE, SELFPAY ==
--- NOTE | 2022-05-29 09:51 | NM_ITS ---
CLINICAL: 71-year-old male with history of clinical gastroparesis. SEMI-SOLID PHASE 99m Tc SULFUR COLLOID GASTRIC EMPTYING STUDY COMPARISON: None available FINDINGS: The patient was administered 1.1 mCi of 99m Tc sulfur colloid mixed with oatmeal and consumed per os. Image acquisitions in the anterior-posterior projections were obtained for 60 minutes. There is prompt visualization of the stomach. There is no gastroesophageal reflux identified. The T ? emptying was calculated to be 54.09 minutes, (Normal: 12-56 minutes). NM/Gastric Emptying Study IMPRESSION: 1. NORMAL 99m Tc sulfur colloid semi-solid phase (oatmeal) gastric emptying imaging examination. A. There is upper limits of normal, preserved semi-solid phase gastric emptying compared to normal controls. (April et al, J Nucl Med Tech 38: 186, 2010). Electronically Signed: Christian Chester, at 22:16 EDT ,
== END | disposition home or self-care (01) ==
LOC: NM 09:50
PROVIDERS: PCP Family Medicine; Referring Provider Internal Medicine Gastroenterology; Visit Provider Internal Medicine Gastroenterology
DX: K31.84 Gastroparesis (principal); R10.30 Lower abdominal pain, unspecified
CPT/HCPCS: 78264; A9541

== ENCOUNTER → 2022-06-06 | Outpatient (CLI) | payer MEDICARE, SELFPAY ==
--- NOTE | 2022-06-06 09:07 | NM_ITS ---
CLINICAL: 71-year-old male with history of right upper quadrant abdominal pain. RADIONUCLIDE HEPATOBILIARY SCINTIGRAPHY COMPARISON: None available FINDINGS: Following the intravenous administration of 5.8 mCi of 99m Tc Mebrofenin, hepatobiliary images reveal: 1. Relatively prompt and homogeneous radiopharmaceutical concentration is noted by a normal sized liver. No parenchymal defects are identified. 2. Gallbladder activity is identified at 30 minutes post radiopharmaceutical administration. 3. Small intestinal tract is observed at 15 minutes following tracer injection. 4. Washout of the radiopharmaceutical by the hepatic parenchyma appears qualitatively normal. Cholecystokinin (0.02 ug/kg) was administered intravenously over a 30-minute period. The post CCK gallbladder ejection fraction calculated at 20 minutes following Cholecystokinin administration was noted to be 64.0 % (normal greater than 35%). During 30 minutes of post CCK imaging, there is no scintigraphic evidence of reflux of the radiotracer into the common hepatic duct or refilling of the gallbladder. NM/Hepatobilliary Img w/Pharm Int IMPRESSION: 1. NORMAL 99m Tc Mebrofenin hepatobiliary imaging examination with Cholecystokinin. A. A gallbladder ejection fraction calculated to be greater than 35% following the administration of Cholecystokinin makes the probability of functional hepatobiliary disease (gallbladder and/or sphincter of Oddi dyskinesia) and/or organic hepatobiliary disease (chronic acalculous cholecystitis and/or cystic duct syndrome) to be low. (Gamaliel Newton et al, Journal of Nuclear Medicine 32:1695, 1991). Electronically Signed: Christian Chester, at 22:02 EDT ,
== END | disposition home or self-care (01) ==
PROVIDERS: PCP Family Medicine; Referring Provider Internal Medicine Gastroenterology; Visit Provider Internal Medicine Gastroenterology
DX: R10.10 Upper abdominal pain, unspecified (principal); G89.29 Other chronic pain
CPT/HCPCS: 78227; A9537; J2805

== ENCOUNTER → 2022-12-20 | Outpatient (CLI) | payer MEDICARE, SELFPAY ==
[2022-12-20 12:41] LABS: Albumin, Serum 3.9 g/dL (3.2-5.0); BUN 24 mg/dL (7-18); BUN/Creat Ratio 13.3 RATIO (10-20); Calcium,Total 9.3 mg/dL (8.5-10.1); Chloride 107 mmol/L (98-107); EST Glomerular Filtration Rate 39 mL/min (>60); Est Glom Filt Rate - Afr Amer 48 mL/min (>60); Glucose 121 mg/dL (74-106); PTHIN 83.9 pg/mL (18.4-80.1); Phosphorus 2.6 mg/dL (2.5-4.9); Sodium Level 136 mmol/L (136-145)
== END | disposition home or self-care (01) ==
LOC: BIMLAB 08:51
PROVIDERS: PCP Family Medicine; Referring Provider Internal Medicine Nephrology; Visit Provider Internal Medicine Nephrology
DX: N18.32 Chronic kidney disease, stage 3b (principal)
CPT/HCPCS: 36415; 80069; 83970

== ENCOUNTER → 2023-04-03 | Outpatient (CLI) | payer MEDICARE, SELFPAY ==
[2023-04-03 13:14] LABS: Anion Gap 3 (5-15); BUN 26 mg/dL (7-18); BUN/Creat Ratio 13.3 RATIO (10-20); Calcium,Total 8.7 mg/dL (8.5-10.1); Chloride 113 mmol/L (98-107); Creatinine, Serum 1.95 mg/dL (0.70-1.30); EST Glomerular Filtration Rate 36 mL/min (>60); Est Glom Filt Rate - Afr Amer 44 mL/min (>60); Glucose 138 mg/dL (74-106); Potassium 4.5 mmol/L (3.5-5.1); Sodium Level 142 mmol/L (136-145)
== END | disposition home or self-care (01) ==
LOC: BIMLAB 08:55
PROVIDERS: PCP Family Medicine; Referring Provider Family Medicine; Visit Provider Family Medicine
DX: N18.30 Chronic kidney disease, stage 3 unspecified (principal)
CPT/HCPCS: 36415; 80048

== ENCOUNTER → 2023-08-21 | Outpatient (CLI) | payer MEDICARE, SELFPAY ==
[2023-08-21 12:47] LABS: Protein, Urine (Random) 32.4 mg/dL (<11.9); Protein:Creat Ratio 266 mg/g CRE (0-200)
[2023-08-21 13:11] LABS: Albumin, Serum 3.7 g/dL (3.2-5.0); BUN 20 mg/dL (7-18); BUN/Creat Ratio 11.8 RATIO (10-20); Calcium,Total 8.6 mg/dL (8.5-10.1); Chloride 109 mmol/L (98-107); EST Glomerular Filtration Rate 42 mL/min (>60); Est Glom Filt Rate - Afr Amer 51 mL/min (>60); Glucose 142 mg/dL (74-106); Phosphorus 2.7 mg/dL (2.5-4.9); Potassium 4.4 mmol/L (3.5-5.1); Sodium Level 140 mmol/L (136-145)
== END | disposition home or self-care (01) ==
LOC: BIMLAB 09:09
PROVIDERS: PCP Family Medicine; Referring Provider Internal Medicine Nephrology; Visit Provider Internal Medicine Nephrology
DX: E11.22 Type 2 diabetes mellitus with diabetic chronic kidney disease (principal); N18.32 Chronic kidney disease, stage 3b
CPT/HCPCS: 36415; 80069; 82570; 84156

== ENCOUNTER → 2024-02-24 | Outpatient (CLI) | payer MEDICARE, SELFPAY | END | disposition home or self-care (01) | LOC: LABSPEC 16:40 | PROVIDERS: PCP Family Medicine; Referring Provider Nurse Practitioner; Visit Provider Nurse Practitioner | DX: L02.32 Furuncle of buttock (principal) | CPT/HCPCS: 87070; 87077; 87205 ==

== ENCOUNTER 2024-03-17 07:21 | Day surgery (SDC) | payer MEDICARE, SELFPAY ==
[2024-03-17] VITALS (7 sets, daily range): BP systolic 95–137; BP diastolic 61–81; PULSE 54–59; RESP 14–18; TEMP 36.1–37.1; O2SAT 96–100; BMI 28.0
--- NOTE | 2024-03-17 07:36 | PCM.PRE.AN2 ---
ASA Classification* ASA Classification ASA Classification: 2 Assessment & Plan Anesthesia* Anesthesia Assessment Anesthesia Assessment: Discussed sedation and/or anesthesia options, risks, benefits, and alternatives with patient/parents/legal guardian/POA. Questions invited. The patient/parents/legal guardian/POA seems to understand and agrees to proceed with anesthesia plan. Reviewed the physical assessment, medical history, allergy history and patient home medications list prior to surgery/procedure/anesthetic and documented any changes. Performed airway and anesthesia risk assessments. Anesthesia Type Anesthesia Type: MAC (see written pre anesthesia record for full assessment) Anesthesia Focused Assessment* Airway Assessment Mouth opens: >3 cm Mallampati Score: II Focused Labs Anesthesia Preop lab: CBC WBC 3.7 K/mm3 (4.4-11.0) L 07/26/21 09:03 RBC 4.10 M/mm3 (4.6-6.2) L 07/26/21 09:03 Hgb 13.3 g/dL (13.0-16.5) 07/26/21 09:03 Hct 39.2 % (40-54) L 07/26/21 09:03 Plt Count 183 K/mm3 (150-450) 07/26/21 09:03 CHEMISTRY Potassium 4.4 mmol/L (3.5-5.1) 08/21/23 09:10 Sodium 140 mmol/L (136-145) 08/21/23 09:10 Magnesium 2.0 mg/dL (1.6-2.6) 05/26/21 21:20 Phosphorus 2.7 mg/dL (2.5-4.9) 08/21/23 09:10 BUN 20 mg/dL (7-18) H 08/21/23 09:10 Creatinine 1.70 mg/dL (0.70-1.30) H 08/21/23 09:10 Glucose 142 mg/dL (74-106) H 08/21/23 09:10 POC Glucose 229 mg/dL (70-110) H 05/30/21 12:16 COAG Pre-Assessment Diagnosis/Proposed Procedure Planned Operative Procedure(s): COLONOSCOPY-OA Anesthesia History Anesthesia History - commanding officer garage: Anesthesia History - commanding officer garage Hx Hospitalization No 03/10/24 10:49 Any Problems With Anesthesia No 03/10/24 10:49 Cholinesterase deficiency No 03/10/24 10:49 You/Your Family Experience No 03/10/24 10:49 fever (hyperthermia) with Relationship Recent Exposure to Contagious No 12/27/20 09:04 Disease Does patient have nerve No 03/10/24 10:49 stimulator Patient instructed to have device shut off --Does patient have Pacemaker or ICD? When Was Last Pacemaker Check QUESTION #4 FULL TEXT: You/Your Family Experience fever (hyperthermia) with Anesthesia Last Oral Intake Last Oral intake: Last Oral Intake NPO since Meds taken in AM with sips of water? Meds patient instructed to take am of surgery PONV PONV - commanding officer garage: PONV - commanding officer garage Female No 03/10/24 10:49 HX of Motion Sickness No 03/10/24 10:49 HX of N/V After Surgery No 03/10/24 10:49 Non-Smoker Yes 03/10/24 10:49 Duration of Surgery greater No 03/10/24 10:49 than 60 minutes Number of Risk Factors 1 03/10/24 10:49 PONV Score Low Risk 03/10/24 10:49 Height & Weight Height & Weight: Anesthesia: Height & Weight Height 5 ft 9 in 02/28/24 14:15 Respiratory Assessment Respiratory Assessment - commanding officer garage: Respiratory Tract Infection Hx - commanding officer garage Hx Respiratory Tract Infection No 03/10/24 10:49 STOP Sleep Apnea STOP Sleep Apnea - commanding officer garage: STOP Sleep Apnea - commanding officer garage Hx Hypertension Yes: controlled 03/10/24 10:49 Hx Sleep Apnea No 03/10/24 10:49 CPAP BIPAP Do you snore loudly (louder No 03/10/24 10:49 than talking or can be heard Do you often feel tired/ No 03/10/24 10:49 fatigued/ sleepy during daytime? Has anyone observed you stop No 03/10/24 10:49 breathing during sleep? STOP Results Negative 03/10/24 10:49 QUESTION #5 FULL TEXT : Do you snore loudly (louder than talking or can be heard through closed doors)? 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 Specify any problems Hx of Preganancy in last 3 N/A 03/10/24 10:49 Months Nurse Filling Out Transfusion VCHRISTIN 03/10/24 10:49 & Questions: Date: 03/10/24 03/10/24 10:49 Time: 10:50 03/10/24 10:49 Patient unable to answer at this time (ie. confused, unrespo /Reproduction History /Reproductive History - commanding officer garage: /Reproductive Hx- commanding officer garage Hx Now Gestational Age (in weeks): EDC: Hx Hx Para Hx Section SAB PFSH Medical History Wears dentures Diabetes High cholesterol Smoker Hx of colonic polyps COVID-19 virus infection History of DVT (deep vein thrombosis) Constipation Lower abdominal pain Chronic obstructive pulmonary disease Left leg swelling History of melanoma Stage 3 chronic kidney disease Hyperlipemia Hypertension Type 2 diabetes mellitus Home Medications ?Medication ?Instructions ?Recorded ?Last Taken ?Type losartan 25 mg tablet 25 mg PO QDAY #90 tabs 04/03/23 Unknown Rx sitagliptin phosphate 50 mg tablet 50 mg PO DAILY #90 tabs 10/15/23 Unknown Rx plecanatide 3 mg tablet (Trulance) 1.5 mg PO DAILY PRN constipation 01/20/24 Unknown History pravastatin 20 mg tablet 20 mg PO QDAY #90 tabs 02/11/24 Unknown Rx Allergy/AdvReac Type Severity Reaction Status Date / Time aspirin Allergy Severe Hives Verified 03/10/24 10:42 Family History Grandmother Diabetes Surgical History Hx of colonoscopy Hx of melanoma excision History of appendectomy Social History Smoking Status: Current every day smoker tobacco type: pipe Smokeless tobacco user: other alcohol intake: never substance use type: does not use caffeine: Yes what type of physical activity do you participate in: other details: yard work frequency: 3-4 times per week Review of Systems (Anesthesia) ROS Narrative System reviewed and no additional complaints, except as documented.
[2024-03-17] MEDS: Lactated Ringers 1,000 ML 15 ML IV (07:52)
[2024-03-17 08:11] LABS: Bedside Glucose 101 mg/dL (74-106)
--- NOTE | 2024-03-17 08:27 | H&P.OPEN ---
HPI - General HPI Narrative LEE HERNÁNDEZ, is a 73 M who presents for surveillance colonoscopy. He had 3 large polyps removed in 2020 and was recommended to have repeat in 3 years. He denies any abdominal pain or blood in the stool. No other changes since his last colonoscopy. [facility] Medical History (Updated 03/17/24 @ 08:[address] Mohsen Campos MD) Wears dentures Diabetes High cholesterol Smoker Hx of colonic polyps COVID-19 virus infection History of DVT (deep vein thrombosis) Constipation Lower abdominal pain Chronic obstructive pulmonary disease Left leg swelling History of melanoma Stage 3 chronic kidney disease Hyperlipemia Hypertension Type 2 diabetes mellitus Home Medications ?Medication ?Instructions ?Recorded ?Last Taken ?Type losartan 25 mg tablet 25 mg PO QDAY #90 tabs 04/03/23 03/17/24 06:00 Rx sitagliptin phosphate 50 mg tablet 50 mg PO DAILY #90 tabs 10/15/23 03/15/24 Rx plecanatide 3 mg tablet (Trulance) 1.5 mg PO DAILY PRN constipation 01/20/24 Unknown History pravastatin 20 mg tablet 20 mg PO QDAY #90 tabs 02/11/24 03/16/24 Rx Allergy/AdvReac Type Severity Reaction Status Date / Time aspirin Allergy Severe Hives Verified 03/17/24 07:44 Family History Grandmother Diabetes Surgical History Hx of colonoscopy Hx of melanoma excision History of appendectomy Social History Smoking Status: Current every day smoker tobacco type: pipe Smokeless tobacco user: other alcohol intake: never substance use type: does not use caffeine: Yes what type of physical activity do you participate in: other details: yard work frequency: 3-4 times per week Past Medical/Surgical History Planned Operation Planned Operative Procedure(s): COLONOSCOPY-OA S.O.S: No Previous Hospitalizations/Surgeries HX Hospitalizations: No HX of Surgeries: Appendix Any Problems With Anesthesia: No You/Your Family Experience Fever (Hyperthermia) With Anes: No Cholinesterase deficiency: No Cardiovascular Hx Chest Pain within Last 2 months: No Hx of Irregular Heartbeat and/or Afib: No Hx Heart Attack: No Hx Congestive Heart Failure: No Hx Rheumatic Fever: No Hx Hypertension: Yes (controlled) Hx Internal Defibrillator: No Hx Pacemaker: No Hx Cardiac Catheterization: No Hx Cardiac Surgery/Stents/Etc.: No Hx Stress Test: No Hx Pain in Legs when Walking/Leg Cramps: No Respiratory Chronic Cough: No HX of Shortness of Breath: No Hoarseness: No Hx Chronic Obstructive Pulmonary Disease (COPD): No Hx Asthma: No Hx Emphysema: No Hx Sleep Apnea: No Hx Respiratory Tract Infection/Cold (presently): No Do You Snore Loudly (louder than talking or can be heard): No Do You Often Feel Tired/ Fatigued/ Sleepy Dring Daytime?: No Has Anyone Observed You Stop Breathing During Sleep?: No Result (for STOP score): Negative Smoking Status: Current every day smoker Gastrointestinal Hx Gastrointestinal Disorders: Yes (constipation) Hx Gastrointestinal Bleed: No Hx Ulcer: No Hx Hiatal Hernia: No Difficulty Chewing/Swallowing: No Special diet followed at home: No Hx Unplanned Weight Loss of 20#: No HX Unplanned Weight Gain of 20#: No Neurological Hx Seizures: No HX Syncope/Blackout Spells/Unconsciousness: No Hx Transient Ischemic Attacks (TIA): No Hx Multiple Sclerosis: No Hx Parkinson's Disease: No Hx Head/Neck Injury: No Hx Headaches: No Hx Back Injury/Pain: No Recent Onset of Speech Difficulty: No Restless Legs: No Does patient have nerve stimulator: No Blood Disorder Hx Leukemia: No Bleeding Tendencies: No Hx Deep Vein Thrombosis: No Hx High Cholesterol: Yes (controlled) Blood Transmitted Disease: No Hx Hepatitis: No Hx Cirrhosis: No Hx Anemia: No Hx Blood Disorders: No Genitourinary Hx Renal Disease: No Musculoskeletal Hx Arthritis: No Hx Rheumatoid Arthritis: No Recent Onset of an Orthopedic Problem: No Endocrine Hx Diabetes: Yes Insulin: No Thyroid Disease: No Psycho/Social Hx Substance Use: No Hx Alcohol Use: No Hx Anxiety: No Hx Depression: No Mental Illness: No Hx Dementia: No Miscellaneous Hx Cancer: No Recent Exposure to Contagious Disease: No Hx of C-Diff: No Any Loose Teeth: No (Upper & lower dentures) Allergies aspirin Allergy (Severe, Verified 03/17/24 07:44) Hives Discharge Is Pt Admitted From a Halfway, or a Snf: No After D/C, Where Do you Plan to Go: Return Home From the [facility] History Number of Risk Factors: 1 Vital Signs Vital Signs Vital Signs: 03/17/24 07:47 03/17/24 07:47 Temperature 98.7 F Temperature Source Temporal Pulse Rate 55 L Respiratory Rate 16 Respiratory Pattern Normal Blood Pressure 137/81 H Blood Pressure Mean 99 Blood Pressure Source Monitor Blood Pressure Position Semi-Fowlers Blood Pressure Location Right Arm Pulse Ox 100 Oxygen Delivery Method Room Air Weight Weight: 201 lb 8.04 oz Body Mass Index (BMI) 28.0 Physical Exam Const alert and oriented x3 HEENT normocephalic Eyes PERRL Resp normal respiratory effort and normal air movement Cardio regular rate and regular rhythm GI soft to palpation, non-tender and non-distended Extremity normal to inspection Assessment & Plan Assessment/Plan (1) Hx of colonic polyps: PLAN: I explained endoscopy in detail to the patient. I explained the risks including but not limited to stroke or heart attack with anesthesia, perforation of the GI tract, bleeding, infection. I explained that any of these could necessitate further emergency surgery. The patient understands and all questions were answered sufficiently. The patient wishes to proceed with procedure. Mohsen Campos MD Pager: [facility] [address] [place] [address] [place] [address] Office: Surgery Risks - Colonoscopy Risks Include but are not Limited To: Risks include but are not limited to: Bleeding, perforation requiring further surgery, inability to complete colonoscopy requiring barium enema.
--- NOTE | 2024-03-17 08:45 | COLBX_PTH ---
PATIENT: LEE HERNÁNDEZ LOC: EN U#:[id number] AGE/SX: 73/M ROOM: RE03/17/[address]: Dr. Mohsen Campos MD : 1950 BED: DIS: 03/17/2024 SPEC #: [id number] RECD: 03/17/24 09:34 STATUS: KOLBY ZACHARIAH #: [id number] NICOLE: 03/17/24 08:[address]: Mohsen Campos DEPT: SURGICAL PATHOLOGY RECD BY: Vi Odell ENTERED: 03/17/24 10:33 SP TYPE: COLON BX OTHR DR: Dr. Oscar Weaver, Tissues: COLON BIOPSY Procedures: Surgery Specimen Level IV HEADER OPERATION: Colonoscopy, polypectomy PRE-OP DIAGNOSIS: History of colonic polyps TISSUE SUBMITTED: Hepatic flexure polyps x3 MICROSCOPIC DIAGNOSIS Hepatic flexure polyp x3, polypectomy: Fragments of tubular adenoma. LUKE/ 03/18/2024 MICROSCOPIC DESCRIPTION Slides are reviewed. GROSS DESCRIPTION Received in fixative is one container labeled with the patient's name and designated Hepatic flexure polyps x3. The specimen consists of multiple irregular fragments of light perkins soft tissue that in aggregate measure 2.0 x 0.5 x 0.1 cm. The specimen is totally submitted in one cassette. LUKE/ 03/17/2024 TC:1 CPT:58294
--- NOTE | 2024-03-17 09:00 | PCM.POST.ANE ---
Anesthesia: Postop Eval I Current Vital Signs Temperature: 96.9 F Pulse Rate: 57 Blood Pressure: 95/61 Respiratory Rate: 16 Pulse Ox: 100 Oxygen Delivery Method: Room Air Assessment Airway patent: Yes Spontaneous unlabored respirations: Yes Mental status: Awake and Calm nausea: No Vomiting: No Anesthesia Complication: No Fluid Hydration Crystalloid volume administer (ml): 500 Total IV fluid infused: 500 Progress Note Anesthesia document: Postop Eval 1 completed: Yes
--- NOTE | 2024-03-17 09:01 | OP.COLON_ITS ---
Patient Name: Dayton Guo Procedure Date: 03/17/2024 8:32 AM Date of : 1950 Age: 73 Procedure: Colonoscopy Indications: High risk colon cancer surveillance: Personal history of colonic polyps Providers: Mohsen Campos MD Medicines: Propofol per Anesthesia Patient Profile: This is a 73 year old male. Refer to note in patient chart for documentation of history and physical. Last Colonoscopy: more than 3 years ago. Complications: No immediate complications. Estimated blood loss: Minimal. Procedure: Pre-Anesthesia Assessment: - Prior to the procedure, a History and Physical was performed, and patient medications and allergies were reviewed. The patient's tolerance of previous anesthesia was also reviewed. The risks and benefits of the procedure and the sedation options and risks were discussed with the patient. All questions were answered, and informed consent was obtained. Prior Anticoagulants: The patient has taken no anticoagulant or antiplatelet agents. After reviewing the risks and benefits, the patient was deemed in satisfactory condition to undergo the procedure. After I obtained informed consent, the scope was passed under direct vision. Throughout the procedure, the patient's blood pressure, pulse, and oxygen saturations were monitored continuously. The Colonoscope was introduced through the anus and advanced to the cecum, identified by appendiceal orifice and ileocecal valve. The colonoscopy was performed without difficulty. The patient tolerated the procedure well. The quality of the bowel preparation was good. The ileocecal valve, appendiceal orifice, and rectum were photographed. Scope In: 8:41:24 AM Scope Withdrawal Time 0 hours 8 minutes 50 seconds Scope Out: 8:53:58 AM Total Procedure Duration Time 0 hours 12 minutes 34 seconds Findings: Three polyps were found in the hepatic flexure. The polyps were small in size. These polyps were removed with a hot snare. Resection and retrieval were complete. The exam was otherwise without abnormality on direct and retroflexion views. Impression: - Three small polyps at the hepatic flexure, removed with a hot snare. Resected and retrieved. - The examination was otherwise normal on direct and retroflexion views. Recommendation: - Discharge patient to home. - Resume previous diet. - Continue present medications. - Await pathology results. - Repeat colonoscopy in 3 years for surveillance of multiple polyps. Procedure Code(s): --- Professional --- 44399, Colonoscopy, flexible; with removal of tumor(s), polyp(s), or other lesion(s) by snare technique Diagnosis Code(s): --- Professional --- Z86.010, Personal history of colonic polyps D12.3, Benign neoplasm of transverse colon (hepatic flexure or splenic flexure) CPT copyright 2021 [employer]. All rights reserved. The codes documented in this report are preliminary and upon vineyard supervisor review may be revised to meet current compliance requirements. Mohsen Campos MD 03/17/2024 9:00:48 AM This report has been signed electronically. Number of Addenda: 0 Note Initiated On: 03/17/2024 8:32 AM
--- NOTE | 2024-03-17 09:01 | OP.CCLET_ITS ---
03/17/2024 Oscar Weaver Re : Colonoscopy procedure for Dayton Guo Dear Dr. Weaver This procedure was performed on Sunday, March 17, 2024. My impressions and recommendations are as follows: Impressions : - Three small polyps at the hepatic flexure, removed with a hot snare. Resected and retrieved. - The examination was otherwise normal on direct and retroflexion views. Recommendations : - Discharge patient to home. - Resume previous diet. - Continue present medications. - Await pathology results. - Repeat colonoscopy in 3 years for surveillance of multiple polyps. My findings are described in the full procedure note, which is enclosed. If I can be of further assistance, please feel free to contact me at Doctor phone number(s): , Work: . Sincerely, Mohsen Campos MD 03/17/2024 9:00:48 AM This report has been signed electronically.
--- NOTE | 2024-03-17 09:08 | EKG12_ITS ---
Test Reason : PRE OP Blood Pressure : / mmHG Vent. Rate : 052 BPM Atrial Rate : 052 BPM P-R Int : 360 ms QRS Dur : 150 ms QT Int : 486 ms P-R-T Axes : 000 -61 027 degrees QTc Int : 451 ms Sinus bradycardia with 1st degree A-V block with occasional Premature ventricular complexes Right bundle branch block Left anterior fascicular block Bifascicular block Abnormal ECG When compared with ECG of 26-MAY-2021 22:24, Vent. rate has decreased BY 48 BPM Confirmed by Agustin Sapp ([id number]), technical writer and editor JANNY CORRAL ([id number]) on 03/20/2024 6:18:26 AM Referred By: Oscar Weaver Confirmed By:Agustin Sapp
--- NOTE | 2024-03-17 09:54 | PCM.POST.ANE ---
Anesthesia: Postop Eval I Current Vital Signs Temperature: 96.9 F Pulse Rate: 55 Blood Pressure: 95/61 Respiratory Rate: 14 Pulse Ox: 96 Oxygen Delivery Method: Room Air Assessment Airway patent: Yes Spontaneous unlabored respirations: Yes Mental status: Awake and Calm nausea: No Vomiting: No Anesthesia Complication: No Fluid Hydration Crystalloid volume administer (ml): 300 Total IV fluid infused: 300 Progress Note Anesthesia document: Postop Eval 1 completed: Yes
== END 2024-03-17 09:39 | disposition home or self-care (01) ==
LOC: EN 07:22 → AC 07:23
PROVIDERS: PCP Family Medicine; Referring Provider Family Medicine; Visit Provider Surgery
PROC: 0DJD8ZZ Inspection of Lower Intestinal Tract, Via Natural or Artificial Opening Endoscopic (ICD-10-PCS; CPT 45378; principal; 2024-03-17 08:40)
DX: Z12.11 Encounter for screening for malignant neoplasm of colon (principal); J44.9 Chronic obstructive pulmonary disease, unspecified; E11.22 Type 2 diabetes mellitus with diabetic chronic kidney disease; N18.30 Chronic kidney disease, stage 3 unspecified; I12.9 Hypertensive chronic kidney disease with stage 1 through stage 4 chronic kidney disease, or unspecified chronic kidney disease; F17.290 Nicotine dependence, other tobacco product, uncomplicated; Z79.84 Long term (current) use of oral hypoglycemic drugs; Z86.010 Personal history of colon polyps; E78.00 Pure hypercholesterolemia, unspecified; Z79.899 Other long term (current) drug therapy; D12.3 Benign neoplasm of transverse colon
CPT/HCPCS: 45385; 82962; 88305; 93005; J7120

== ENCOUNTER → 2024-04-28 | Outpatient (CLI) | payer MEDICARE, SELFPAY ==
[2024-04-28 12:35] LABS: ALB/GLOB Ratio 1.2 RATIO (0.9-2.4); AST(SGOT) 17 U/L (15-37); Alanine Aminotransfer ALT/SGPT 20 U/L (16-61); Albumin, Serum 3.7 g/dL (3.2-5.0); Alkaline Phosphatase 96 U/L (45-117); Anion Gap 5 (5-15); BUN 23 mg/dL (7-18); BUN/Creat Ratio 13.1 RATIO (10-20); Calcium,Total 9.2 mg/dL (8.5-10.1); Chloride 107 mmol/L (98-107); Creatinine, Serum 1.75 mg/dL (0.70-1.30); EST Glomerular Filtration Rate 41 mL/min (>60); Est Glom Filt Rate - Afr Amer 49 mL/min (>60); Globulin 3.1 g/dL (2.2-4.2); Glucose 207 mg/dL (74-106); Potassium 4.5 mmol/L (3.5-5.1); Protein, Total 6.8 g/dL (6.4-8.2); Sodium Level 137 mmol/L (136-145)
== END | disposition home or self-care (01) ==
LOC: BIMLAB 09:22
PROVIDERS: PCP Family Medicine; Visit Provider Family Medicine
DX: I10 Essential (primary) hypertension (principal)
CPT/HCPCS: 36415; 80053

== ENCOUNTER → 2024-05-21 | Outpatient (CLI) | payer MEDICARE, SELFPAY ==
[2024-05-21 12:40] LABS: Albumin, Serum 3.7 g/dL (3.2-5.0); BUN 22 mg/dL (7-18); BUN/Creat Ratio 11.8 RATIO (10-20); Calcium,Total 9.1 mg/dL (8.5-10.1); Chloride 110 mmol/L (98-107); Creatinine, Serum 1.86 mg/dL (0.70-1.30); EST Glomerular Filtration Rate 38 mL/min (>60); Est Glom Filt Rate - Afr Amer 46 mL/min (>60); Glucose 198 mg/dL (74-106); Phosphorus 2.5 mg/dL (2.5-4.9); Potassium 4.5 mmol/L (3.5-5.1); Sodium Level 139 mmol/L (136-145)
== END | disposition home or self-care (01) ==
LOC: BIMLAB 09:51
PROVIDERS: PCP Family Medicine; Referring Provider Internal Medicine Nephrology; Visit Provider Internal Medicine Nephrology
DX: E11.22 Type 2 diabetes mellitus with diabetic chronic kidney disease (principal); N18.32 Chronic kidney disease, stage 3b
CPT/HCPCS: 36415; 80069

== ENCOUNTER → 2024-05-22 | Outpatient (CLI) | payer MEDICARE, SELFPAY ==
[2024-05-22 17:24] LABS: Protein, Urine (Random) 47.7 mg/dL (<11.9); Protein:Creat Ratio 324 mg/g CRE (0-200)
== END | disposition home or self-care (01) ==
LOC: LABSPEC 11:48
PROVIDERS: PCP Family Medicine; Referring Provider Internal Medicine Nephrology; Visit Provider Internal Medicine Nephrology
DX: E11.22 Type 2 diabetes mellitus with diabetic chronic kidney disease (principal); N18.32 Chronic kidney disease, stage 3b
CPT/HCPCS: 82570; 84156

== ENCOUNTER → 2024-06-25 | Outpatient (CLI) | payer MEDICARE, SELFPAY ==
[2024-06-25 12:56] LABS: Anion Gap 3 (5-15); BUN 25 mg/dL (7-18); BUN/Creat Ratio 13.6 RATIO (10-20); Calcium,Total 9.6 mg/dL (8.5-10.1); Chloride 107 mmol/L (98-107); Creatinine, Serum 1.84 mg/dL (0.70-1.30); EST Glomerular Filtration Rate 38 mL/min (>60); Est Glom Filt Rate - Afr Amer 46 mL/min (>60); Glucose 180 mg/dL (74-106); Potassium 4.4 mmol/L (3.5-5.1); Sodium Level 137 mmol/L (136-145)
== END | disposition home or self-care (01) ==
LOC: BIMLAB 10:17
PROVIDERS: PCP Family Medicine; Referring Provider Internal Medicine Nephrology; Visit Provider Internal Medicine Nephrology
DX: E11.9 Type 2 diabetes mellitus without complications (principal)
CPT/HCPCS: 36415; 80048

== ENCOUNTER → 2024-07-29 | Outpatient (CLI) | payer MEDICARE, SELFPAY ==
--- NOTE | 2024-07-29 08:18 | EKG12_ITS ---
Test Reason : AFIB Blood Pressure : */* mmHG Vent. Rate : 51 BPM Atrial Rate : 51 BPM P-R Int : * ms QRS Dur : 138 ms QT Int : 458 ms P-R-T Axes : * -61 45 degrees QTcB Int : 422 ms sinus bradycardia with Right bundle branch block Left anterior fascicular block Bifascicular block Abnormal ECG Confirmed by ZOFIA WHITE, RAFFI ([id number]), editor book DARIELA LUCAS ([id number]) on 07/30/2024 6:34:31 AM Referred By: Oscar Weaver Confirmed By: RAFFI ARMIJO MD
== END | disposition home or self-care (01) ==
LOC: PSN 08:17
PROVIDERS: PCP Family Medicine; Referring Provider Family Medicine; Visit Provider Family Medicine
DX: I48.91 Unspecified atrial fibrillation (principal)
CPT/HCPCS: 93005

== ENCOUNTER → 2024-12-01 | Outpatient (CLI) | payer MEDICARE, SELFPAY ==
[2024-12-01 12:57] LABS: Albumin, Serum 4.4 g/dL (3.4-4.8); Anion Gap 11 (5-15); BUN 26 mg/dL (4-19); BUN/Creat Ratio 14.1 RATIO (10-20); Calcium,Total 9.2 mg/dL (7.6-11.0); Carbon Dioxide 21.1 mmol/L (21.0-32.0); Chloride 107 mmol/L (98-108); Creatinine, Serum 1.85 mg/dL (0.70-1.20); EST Glomerular Filtration Rate 38 (>60); Glucose 208 mg/dL (70-99); Phosphorus 2.9 mg/dL (2.7-4.5); Potassium 4.6 mmol/L (3.3-5.1); Sodium Level 140 mmol/L (133-145)
[2024-12-01 15:27] LABS: Protein, Urine (Random) 18.9 mg/dL (0.0-12.0); Protein:Creat Ratio 268 mg/g CRE (0-200)
== END | disposition home or self-care (01) ==
LOC: BIMLAB 10:35
PROVIDERS: PCP Family Medicine; Referring Provider Internal Medicine Nephrology; Visit Provider Internal Medicine Nephrology
DX: E11.22 Type 2 diabetes mellitus with diabetic chronic kidney disease (principal); N18.32 Chronic kidney disease, stage 3b
CPT/HCPCS: 36415; 80069; 82570; 84156

== ENCOUNTER → 2025-05-11 | Outpatient (CLI) | payer MEDICARE, SELFPAY ==
[2025-05-11 13:20] LABS: AST(SGOT) 18 U/L (<=37); Alanine Aminotransfer ALT/SGPT 19 U/L (<=46); Albumin, Serum 4.3 g/dL (3.4-4.8); Alkaline Phosphatase 93 U/L (40-129); Anion Gap 11 (5-15); BUN 28 mg/dL (4-19); BUN/Creat Ratio 14.6 RATIO (10-20); Calcium,Total 9.2 mg/dL (7.6-11.0); Carbon Dioxide 22.5 mmol/L (21.0-32.0); Chloride 105 mmol/L (98-108); Cholesterol 186 mg/dL (<=200); Globulin 2.4 g/dL (2.2-4.2); Glucose 202 mg/dL (70-99); Low Density Lipoprotein Calc. 106 mg/dL; Potassium 4.8 mmol/L (3.3-5.1); Triglycerides 198 mg/dL; Very Low Density Lipoprotein 40 mg/dL (5-40); cholesterol:hdl ratio screen 4.59
== END | disposition home or self-care (01) ==
LOC: MFPLAB 08:44 → BIMLAB 08:51
PROVIDERS: PCP Family Medicine; Referring Provider Family Medicine; Visit Provider Family Medicine
DX: E11.22 Type 2 diabetes mellitus with diabetic chronic kidney disease (principal); N18.30 Chronic kidney disease, stage 3 unspecified
CPT/HCPCS: 36415; 80053; 80061

== ENCOUNTER → 2025-07-28 | Outpatient (CLI) | payer MEDICARE, SELFPAY ==
[2025-07-28 09:52] LABS: Anion Gap 11 (5-15); BUN 25 mg/dL (4-19); BUN/Creat Ratio 13.7 RATIO (10-20); Calcium,Total 9.0 mg/dL (7.6-11.0); Carbon Dioxide 20.9 mmol/L (21.0-32.0); Chloride 109 mmol/L (98-108); Glucose 180 mg/dL (70-99); Potassium 4.6 mmol/L (3.3-5.1)
== END | disposition home or self-care (01) ==
LOC: LAB 09:05
PROVIDERS: PCP Family Medicine; Referring Provider Family Medicine; Visit Provider Family Medicine
DX: N18.32 Chronic kidney disease, stage 3b (principal)
CPT/HCPCS: 36415; 80048